=== PATIENT | female | born 1945 | race Caucasian/White ===

== ENCOUNTER → 2016-09-03 | Outpatient (CLI) | payer BC ==
[~2016-09-03] MED LIST: ACCL20 PO; ACET-1311 PO; ASCA500 PO; ATV5 PO; CLTP PO; CYAN500T13 PO; JANUMET PO; LISI-461 PO; LRT5 PO; MULT-506 PO; OMEG10007 PO; OXYM0.0592 NAE; PANT40TA PO; PARO1TAB27 PO; SIMV20TA2 PO
[2016-09-03 11:16] LABS: HEMATOCRIT 42.8 % (37-47); MEAN CELL VOLUME 92.6 fL (80-100); MEAN CORPUSCULAR HEMOGLOBIN 31.4 pg (25-34); MEAN CORPUSCULAR HGB CONC 33.9 g/dl (32-36); MEAN PLATELET VOLUME 11.1 fL (7.4-10.4); PLATELET COUNT 185 K/uL (130-400); RED BLOOD COUNT 4.62 M/uL (4.2-5.4); WHITE BLOOD COUNT 6.62 K/uL (4.8-10.8)
[2016-09-03 11:37] LABS: ESTIMATED AVERAGE GLUCOSE 163 mg/dl; HA1C FLAG Normal (Normal)
[2016-09-03 11:58] LABS: BLOOD UREA NITROGEN 15 mg/dl (7-18); BUN/CREATININE RATIO 17.5 (10-20); CARBON DIOXIDE 26 mmol/L (21-32); CHLORIDE 106 mmol/L (98-107); CREATININE 0.85 mg/dl (0.60-1.20); GLUCOSE 147 mg/dl (70-99); POTASSIUM 4.3 mmol/L (3.5-5.1); SODIUM 141 mmol/L (136-145)
[2016-09-03 11:59] LABS: ALKALINE PHOSPHATASE 88 U/L (45-117); ALT/SGPT 39 U/L (12-78); AST/SGOT 23 U/L (15-37); CALCIUM 8.8 mg/dl (8.5-10.1); CHOLESTEROL 156 mg/dl (0-200); CHOLESTEROL/HDL RATIO 3.3; HDL CHOLESTEROL 47 mg/dl; LDL CHOLESTEROL CALCULATED 69 mg/dl; TRIGLYCERIDES 202 mg/dl (0-150); VERY LOW DENSITY LIPOPROT CALC 40 mg/dl
== END | disposition home or self-care (01) ==
LOC: C.LAB 10:23
PROVIDERS: ATTEND Internal Medicine Geriatric Medicine
DX: E78.5 Hyperlipidemia, unspecified (principal); M19.90 Unspecified osteoarthritis, unspecified site; E11.9 Type 2 diabetes mellitus without complications; I10 Essential (primary) hypertension

== ENCOUNTER → 2016-10-20 | Outpatient (CLI) | payer BC | END | disposition home or self-care (01) | LOC: C.LABPBG 11:56 | PROVIDERS: ATTEND Internal Medicine Geriatric Medicine | DX: Z11.59 Encounter for screening for other viral diseases (principal) ==

== ENCOUNTER → 2016-10-31 | Outpatient (CLI) | payer BC ==
--- NOTE | 2016-10-31 13:48 | DIAGNOSTIC IMAGING REPORT ---
TWO VIEW CHEST CLINICAL HISTORY: Asthma exacerbation. FINDINGS: PA and lateral chest radiographs are compared to study dated 08/25/2010. The cardiomediastinal silhouette is unremarkable. Chronic interstitial thickening is unchanged from previous. There is no airspace consolidation or pleural effusion. No pneumothorax is seen. The skeletal structures are osteopenic. Mild degenerative change is noted in the thoracic spine. IMPRESSION: No active disease in the chest. Electronically signed by: Abner Messer M.D. 10/31/2016 1:46 PM Dictated Date/Time: 10/31/2016 1:45 PM
== END | disposition home or self-care (01) ==
LOC: C.RADBC 12:09
PROVIDERS: ATTEND Internal Medicine
DX: J45.901 Unspecified asthma with (acute) exacerbation (principal)

== ENCOUNTER → 2017-02-19 | Outpatient (CLI) | payer BC ==
[2017-02-19 17:01] LABS: BASO % 0.8 %; BASO ABS # 0.05 K/uL (0-0.2); COMPLETE YES; EOS % 8.6 %; HEMATOCRIT 41.9 % (37-47); IG% 0.3 %; LYMPH % 22.4 %; LYMPH ABS # 1.43 K/uL (1.2-3.4); MEAN CELL VOLUME 93.3 fL (80-100); MEAN CORPUSCULAR HEMOGLOBIN 31.2 pg (25-34); MEAN CORPUSCULAR HGB CONC 33.4 g/dl (32-36); MEAN PLATELET VOLUME 11.2 fL (7.4-10.4); MONO % 6.6 %; NEUT % 61.3 %; PLATELET COUNT 205 K/uL (130-400); RED BLOOD COUNT 4.49 M/uL (4.2-5.4); WHITE BLOOD COUNT 6.38 K/uL (4.8-10.8)
[2017-02-19 17:07] LABS: BLOOD UREA NITROGEN 25 mg/dl (7-18); BUN/CREATININE RATIO 28.2 (10-20); CARBON DIOXIDE 24 mmol/L (21-32); CHLORIDE 112 mmol/L (98-107); GLUCOSE 146 mg/dl (70-99); POTASSIUM 3.9 mmol/L (3.5-5.1); SODIUM 145 mmol/L (136-145)
[2017-02-20 06:07] LABS: ESTIMATED AVERAGE GLUCOSE 163 mg/dl; HA1C FLAG Normal (Normal)
== END | disposition home or self-care (01) ==
LOC: C.LABPBG 12:02
PROVIDERS: ATTEND Internal Medicine Geriatric Medicine
DX: E11.9 Type 2 diabetes mellitus without complications (principal); I10 Essential (primary) hypertension; J45.909 Unspecified asthma, uncomplicated; G89.29 Other chronic pain

== ENCOUNTER → 2017-06-03 | Outpatient (CLI) | payer BC | END | disposition home or self-care (01) | LOC: C.PATHSPEC 13:19 | PROVIDERS: ATTEND Dermatology | DX: D18.1 Lymphangioma, any site (principal); L82.1 Other seborrheic keratosis ==

== ENCOUNTER → 2017-07-26 | Outpatient (CLI) | payer BC ==
--- NOTE | 2017-07-27 15:09 | MAMMOGRAPHY REPORT ---
BILATERAL DIGITAL SCREENING MAMMOGRAM TOMOSYNTHESIS WITH CAD: 07/26/2017 CLINICAL HISTORY: Routine screening. Patient has no complaints. TECHNIQUE: Breast tomosynthesis in addition to standard 2D mammography was performed. Current study was also evaluated with a Computer Aided Detection (CAD) system. COMPARISON: Comparison is made to exams dated: 07/20/2016 mammogram, 07/17/2015 mammogram, 4 mammogram, 01/26/2014 mammogram, 08/02/2013 ultrasound, and 07/13/2013 mammogram - [facility]. BREAST COMPOSITION: There are scattered areas of fibroglandular density in both breasts. FINDINGS: There are diffuse bilateral benign-appearing rim, rounded punctate microcalcifications in the breasts. No suspicious mass, architectural distortion or cluster of new, suspicious microcalcifi cations is seen. IMPRESSION: ACR BI-RADS CATEGORY 2: BENIGN There is no mammographic evidence of malignancy. A 1 year screening mammogram is recommended. The pa tient will receive written notification of the results. Approximately 10% of breast cancers are not detected with mammography. A negative mammographic report should not delay biopsy if a clinically suggestive mass is present. Bertha Sparks M.D. ay/:07/26/2017 15:50:40 [employer] Operator: Yoli VILLANUEVAR, M, [facility] letter sent: Normal 1/2 BI-RADS Code: ACR BI-RADS Category 2: Benign
== END | disposition home or self-care (01) ==
LOC: C.MAMM 13:43
PROVIDERS: ATTEND Internal Medicine Geriatric Medicine
DX: Z12.31 Encounter for screening mammogram for malignant neoplasm of breast (principal)

== ENCOUNTER → 2017-12-03 | Outpatient (CLI) | payer BC ==
[2017-12-03 12:27] LABS: BASO % 0.2 %; BASO ABS # 0.01 K/uL (0-0.2); EOS % 6.4 %; HEMATOCRIT 41.7 % (37-47); HEMOGLOBIN 14.1 g/dL (12.0-16.0); LYMPH % 26.3 %; LYMPH ABS # 1.23 K/uL (1.2-3.4); MEAN CELL VOLUME 93.3 fL (80-100); MEAN CORPUSCULAR HEMOGLOBIN 31.5 pg (25-34); MEAN CORPUSCULAR HGB CONC 33.8 g/dl (32-36); MEAN PLATELET VOLUME 11.3 fL (7.4-10.4); MONO ABS # 0.42 K/uL (0.11-0.59); NEUT % 58.1 %; NEUT ABS # 2.71 K/uL (1.4-6.5); PLATELET COUNT 207 K/uL (130-400); RED CELL DISTRIBUTION WIDTH CV 12.6 % (11.5-14.5); RED CELL DISTRIBUTION WIDTH SD 42.7 fL (36.4-46.3); WHITE BLOOD COUNT 4.67 K/uL (4.8-10.8)
[2017-12-03 13:11] LABS: HEMOGLOBIN A1C 6.8 % (4.5-5.6)
[2017-12-03 16:12] LABS: ALBUMIN 3.6 gm/dl (3.4-5.0); ALT/SGPT 31 U/L (12-78); BLOOD UREA NITROGEN 23 mg/dl (7-18); CALCIUM 8.7 mg/dl (8.5-10.1); CARBON DIOXIDE 27 mmol/L (21-32); CHOLESTEROL 143 mg/dl (0-200); CREATININE 0.84 mg/dl (0.60-1.20); GLUCOSE 142 mg/dl (70-99); POTASSIUM 4.5 mmol/L (3.5-5.1); SODIUM 140 mmol/L (136-145)
[2017-12-03 16:23] LABS: ALKALINE PHOSPHATASE 81 U/L (45-117); AST/SGOT 21 U/L (15-37); LDL CHOLESTEROL CALCULATED 63 mg/dl
== END | disposition home or self-care (01) ==
LOC: C.LABPBG 10:34
PROVIDERS: ATTEND Internal Medicine Geriatric Medicine
DX: F32.9 Major depressive disorder, single episode, unspecified (principal); E78.5 Hyperlipidemia, unspecified; M19.90 Unspecified osteoarthritis, unspecified site; G25.81 Restless legs syndrome; E11.9 Type 2 diabetes mellitus without complications; I10 Essential (primary) hypertension

== ENCOUNTER 2019-07-11 09:34 | Inpatient (IN) ==
--- NOTE | 2019-06-15 16:45 | PAT Medication Instructions ---
Medication Instructions Date of Service June 15, 2019 Home Medications Medication Instructions Recorded paroxetine 20 mg tablet 20 mg PO HS #90 tab 02/22/19 glimepiride 2 mg tablet 2 mg PO BID #180 tab 02/25/19 zafirlukast 20 mg tablet 20 mg PO Q12H #180 tab 03/21/19 albuterol sulfate HFA 90 2 puffs INH Q4H PRN #18 gm 05/03/19 mcg/actuation aerosol inhaler albuterol sulfate 2.5 mg/3 mL 2.5 mg INH Q4H PRN #90 ml 05/10/19 (0.083 %) solution for nebulization nebulizer accessories kit #1 ea 05/10/19 nebulizers #1 ea 05/10/19 simvastatin 20 mg tablet 20 mg PO QPM #90 tab 06/13/19 ascorbic acid (vitamin C) 500 mg tablet 500 mg PO QAM fish, borage, flaxseed oils-omega 3,6,9 comb no.1 1,200 mg capsule 1 cap PO QAM lisinopril 10 mg tablet 10 mg PO QAM multivitamin tablet 1 tab PO QAM pantoprazole 40 mg tablet,delayed release 40 mg PO QAM acetaminophen 500 mg tablet 500 mg PO Q6H PRN calcium carbonate 600 mg (1,500 mg)-vitamin D3 200 unit tablet 1 tab PO QAM celecoxib 200 mg capsule 200 mg PO QAM cetirizine 10 mg tablet 10 mg PO DAILY PRN fluocinonide 0.05 % topical ointment 1 appln TOPICAL BID lorazepam 0.5 mg tablet 0.5 mg PO HS PRN sitagliptin 100 mg tablet 100 mg PO QAM paroxetine 20 mg tablet 20 mg PO HS glimepiride 2 mg tablet 2 mg PO BID zafirlukast 20 mg tablet 20 mg PO Q12H albuterol sulfate HFA 90 mcg/actuation aerosol inhaler 2 puffs INH Q4H PRN albuterol sulfate 2.5 mg/3 mL (0.083 %) solution for nebulization 2.5 mg INH Q4H PRN simvastatin 20 mg tablet 20 mg PO QPM levalbuterol HCl 1.25 mg INH DAILY PRN ASK your surgeon for instructions celecoxib 200 mg capsule 200 mg PO QAM STOP taking 2 weeks before surgery (or as soon as possible if surgery is within 2 weeks) fish, borage, flaxseed oils-omega 3,6,9 comb no.1 1,200 mg capsule 1 cap PO QAM STOP taking 24 hours before surgery fluocinonide 0.05 % topical ointment 1 appln TOPICAL BID DO NOT take the morning of surgery ascorbic acid (vitamin C) 500 mg tablet 500 mg PO QAM lisinopril 10 mg tablet 10 mg PO QAM multivitamin tablet 1 tab PO QAM calcium carbonate 600 mg (1,500 mg)-vitamin D3 200 unit tablet 1 tab PO QAM cetirizine 10 mg tablet 10 mg PO DAILY PRN sitagliptin 100 mg tablet 100 mg PO QAM glimepiride 2 mg tablet 2 mg PO BID Take morning of surgery With a small sip of water, OTHERWISE NOTHING TO EAT OR DRINK AFTER MIDNIGHT: pantoprazole 40 mg tablet,delayed release 40 mg PO QAM acetaminophen 500 mg tablet 500 mg PO Q6H PRN (okay to take up to 4 hours prior to surgery if needed) zafirlukast 20 mg tablet 20 mg PO Q12H albuterol sulfate HFA 90 mcg/actuation aerosol inhaler 2 puffs INH Q4H PRN (if needed) albuterol sulfate 2.5 mg/3 mL (0.083 %) solution for nebulization 2.5 mg INH Q4H PRN (if needed) levalbuterol HCl 1.25 mg INH DAILY PRN (if needed) Take evening before surgery acetaminophen 500 mg tablet 500 mg PO Q6H PRN (if needed) cetirizine 10 mg tablet 10 mg PO DAILY PRN (if needed) lorazepam 0.5 mg tablet 0.5 mg PO HS PRN (if needed) paroxetine 20 mg tablet 20 mg PO HS glimepiride 2 mg tablet 2 mg PO BID zafirlukast 20 mg tablet 20 mg PO Q12H albuterol sulfate HFA 90 mcg/actuation aerosol inhaler 2 puffs INH Q4H PRN (if needed) albuterol sulfate 2.5 mg/3 mL (0.083 %) solution for nebulization 2.5 mg INH Q4H PRN (if needed) simvastatin 20 mg tablet 20 mg PO QPM levalbuterol HCl 1.25 mg INH DAILY PRN (if needed) Other Notes If you have any questions please call us at [phone] or [phone] or [phone] or [phone]
--- NOTE | 2019-07-10 09:29 | Anesthesiology Consultation ---
Date of Service July 10, 2019 Assessment & Plan Chart Review Chart Review: Acceptable Risk for Surgery and Patient seen in Pre Admission Testing Consults Requested none ASA ASA4 Proposed Anesthesia Anesthesia Type: General Anesthesia Line Insertion: Arterial line History Surgery Operation Date: 07/11/19 11:30 Proposed Procedures p Left Robotic Video Assisted Thoracoscopy with Excision of Paraspinal Mass - Quinn Clark MD, FACS Height/Weight Height: 5 ft 2 in Weight: 85.275 kg Allergies Allergy/AdvReac Type Severity Reaction Status Date / Time latex Allergy Mild itching Verified 07/04/19 12:47 metformin Allergy Mild GI upset Verified 07/04/19 12:47 NSAIDS (Non-Steroidal Allergy Mild bleeding Verified 07/04/19 12:47 Anti-Inflamma Medications Home Medications Medication Instructions Recorded Confirmed Last Taken ascorbic acid (vitamin C) 500 mg 500 mg PO QAM 01/02/19 07/04/19 Unknown tablet fish, borage, flaxseed oils-omega 1 cap PO QAM cap 01/02/19 07/04/19 Unknown 3,6,9 comb no.1 1,200 mg capsule lisinopril 10 mg tablet 10 mg PO QAM 01/02/19 07/04/19 Unknown multivitamin tablet 1 tab PO QAM 01/02/19 07/04/19 Unknown pantoprazole 40 mg tablet,delayed 40 mg PO QAM 01/02/19 07/04/19 Unknown release blood sugar diagnostic strips #10 ea 02/21/19 07/04/19 Unknown calcium carbonate 600 mg (1,500 1 tab PO QAM 02/21/19 07/04/19 Unknown mg)-vitamin D3 200 unit tablet celecoxib 200 mg capsule 200 mg PO QAM #90 cap 02/21/19 07/04/19 Unknown cetirizine 10 mg tablet 10 mg PO DAILY PRN tab 02/21/19 07/04/19 Unknown fluocinonide 0.05 % topical 1 appln TOPICAL BID #1 gm 02/21/19 07/04/19 Unknown ointment lancets 33 gauge #100 ea 02/21/19 07/04/19 Unknown sitagliptin 100 mg tablet 100 mg PO QAM #90 tab 02/21/19 07/04/19 Unknown paroxetine 20 mg tablet 20 mg PO HS #90 tab 02/22/19 07/04/19 Unknown glimepiride 2 mg tablet 2 mg PO BID #180 tab 02/25/19 07/04/19 Unknown zafirlukast 20 mg tablet 20 mg PO Q12H #180 tab 03/21/19 07/04/19 Unknown albuterol sulfate HFA 90 2 puffs INH Q4H PRN #18 gm 05/03/19 07/04/19 Unknown mcg/actuation aerosol inhaler albuterol sulfate 2.5 mg/3 mL 2.5 mg INH Q4H PRN #90 ml 05/10/19 07/04/19 Unknown (0.083 %) solution for nebulization nebulizer accessories kit #1 ea 05/10/19 07/04/19 Unknown nebulizers #1 ea 05/10/19 07/04/19 Unknown simvastatin 20 mg tablet 20 mg PO QPM #90 tab 06/13/19 07/04/19 Unknown levalbuterol HCl 1.25 mg INH DAILY PRN 06/14/19 07/04/19 Unknown metformin ER 500 mg 500 mg PO QPM #30 tab 06/20/19 07/04/19 Unknown tablet,extended release 24 hr lorazepam 0.5 mg tablet 0.5 mg PO HS PRN #90 tab 07/04/19 07/04/19 Unknown Past Medical History Medical History Restless legs syndrome (Chronic) Osteoarthritis Gastroesophageal reflux disease Chronic pain HTN (hypertension) Asthma Dyslipidemia (Chronic) Osteopenia (Chronic) Sleep apnea cpap doesn't use machine Depression Type 2 diabetes mellitus (Chronic) History of bronchitis Exercise / Class Metabolic Activity III < 4 Walking/Shop/Light housework Past Family History Family History Unknown Type 2 diabetes mellitus Coronary heart disease Hypertension Depression Past Surgical History Surgical History H/O: hysterectomy History of carpal tunnel surgery right and left History of knee replacement bilateral History of uvulopalatopharyngoplasty Hx of Achilles tendon repair left Hx of appendectomy S/P tonsillectomy 2002 Past Anesthesia History No Hx of Anesthesia Complications and No Family Hx of Anesthesia Complications History of PONV No Hx of PONV and No Hx of Motion Sickness Social History Smoking Status: Never smoker Do You Dip or Chew Tobacco: No Hx Alcohol Use: No Hx Substance Use: No substance use type: does not use Testing Laboratory Results WBC: 5.48 Hc.6 Hct: 43.8 PLATELETS: 187 SODIUM:140 POTASSIUM: 3.9 CHLORIDE: 110 CO2: 24 BUN: 24 CREATININE: 0.98 GLUCOSE: 269 PT: PTT: INR: UA: TYPE AND SCREEN: HgB A1C-10.2 Electrocardiogram Date: 07/07/19 Findings: + NSR @ (at 78) Chest X-Ray Date: 05/10/19 Findings: + NAD
[~2019-07-11 09:34] MED LIST changes: -ACCL20 PO; -ACET-1311 PO; -ASCA500 PO; -ATV5 PO; -CLTP PO; -CYAN500T13 PO; -JANUMET PO; -LISI-461 PO; -LRT5 PO; -MULT-506 PO; -OMEG10007 PO; -OXYM0.0592 NAE; -PANT40TA PO; -PARO1TAB27 PO; -SIMV20TA2 PO; +SODIUM CHLORIDE 0.9% 1000ML IV SCH
[2019-07-11] MEDS ORDERED: MIDAZOLAM HCL 1 MG/ML 2ML VIAL ONE (10:51)
[2019-07-11] MEDS ORDERED: fentaNYL citrate 100 MCG/2 ML VIAL ONE ×2 (10:52→14:40)
[2019-07-11] MEDS ORDERED: ONDANSETRON INJ 2 MG/ML 2 ML VIAL IV PRN ×2 (11:08→16:09)
[2019-07-11] MEDS ORDERED: LABETALOL HCL IV 5 MG/ML 20ML IV PRN (11:08)
[2019-07-11] MEDS ORDERED: ATROPINE SULFATE 0.1 MG/ML 10ML SYR IV PRN (11:08)
[2019-07-11] MEDS ORDERED: HYDROmorphone INJ 1 MG/ML SYRINGE IV PRN (11:08)
[2019-07-11] MEDS ORDERED: PROMETHAZINE HCL 6.25 MG in SODIUM CHLORIDE 0.9% 50 ML IV PRN (11:08)
[2019-07-11] MEDS ORDERED: BUPIVACAINE 0.5 % 5 MG/1 ML MPF 30ML VIAL ONE (11:33)
[2019-07-11] MEDS ORDERED: SODIUM CHLORIDE 0.9% PF 50 ML VIAL ONE (11:33)
[2019-07-11] MEDS ORDERED: BUPIVACAINE LIPOSOME 1.3% 266 MG/20 ML VIAL ONE (11:34)
[2019-07-11] MEDS ORDERED: CEFAZOLIN 2,000 MG/15 ML IV PUSH IV ONE (12:06)
--- NOTE | 2019-07-11 12:10 | History & Physical Report ---
Date of Service July 11, 2019 Assessment & Plan (1) Paraspinal mass: We are going to proceed with a left thoracoscopy with a robot-assisted resection of this paraspinous mass. We had a long discussion about risks and benefits. Patient and her family understand. Present on Admission?: Yes History of Present Illness Jeanne Sparrow is a very nice 74-year-old female who presented to her primary care physician with a cough. 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 We performed a MRI which confirmed this. Patient has multiple other medical issues including poorly controlled diabetes, hyperlipidemia, gastroesophageal reflux disease. Her sugars were not well controlled and Lakshmi Vu, her primary care provider, asked that we hold off on the surgery until the sugars could be better control. This is been done and we are going to proceed with the surgery today. I had a long talk the patient several of her family members. She has no symptoms from this mass. They are going to offer her a left thoracoscopic robot-assisted excision of this paraspinal mass. Primary Care Provider: Lakshmi Vu PA-C Allergies Allergy/AdvReac Type Severity Reaction Status Date / Time latex Allergy Mild itching Verified 07/11/19 09:56 metformin Allergy Mild GI upset Verified 07/11/19 09:56 NSAIDS (Non-Steroidal Allergy Mild bleeding Verified 07/11/19 09:56 Anti-Inflamma Home Medications Home Medications Medication Instructions Recorded Confirmed Type ascorbic acid (vitamin C) 500 mg 500 mg PO QAM 01/02/19 07/11/19 History tablet fish,bora,flax oils-om3,6,9no1 1 cap PO QAM cap 01/02/19 07/11/19 History 1,200 mg capsule lisinopril 10 mg tablet 10 mg PO QAM 01/02/19 07/11/19 History multivitamin 1 tab PO QAM 01/02/19 07/11/19 History pantoprazole 40 mg tablet,delayed 40 mg PO QAM 01/02/19 07/11/19 History release blood sugar diagnostic #10 ea 02/21/19 07/04/19 History calcium carbonate 600 mg (1,500 1 tab PO QAM 02/21/19 07/11/19 History mg)-vitamin D3 200 unit tablet celecoxib 200 mg capsule 200 mg PO QAM #90 cap 02/21/19 07/11/19 History cetirizine 10 mg tablet 10 mg PO DAILY PRN tab 02/21/19 07/11/19 History fluocinonide 0.05 % topical 1 appln TOPICAL BID #1 gm 02/21/19 07/11/19 History ointment lancets 33 gauge #100 ea 02/21/19 07/04/19 History sitagliptin 100 mg tablet 100 mg PO QAM #90 tab 02/21/19 07/11/19 History paroxetine HCl 20 mg tablet 20 mg PO HS #90 tab 02/22/19 07/11/19 Rx glimepiride 2 mg tablet 2 mg PO BID #180 tab 02/25/19 07/11/19 Rx zafirlukast 20 mg tablet 20 mg PO Q12H #180 tab 03/21/19 07/11/19 Rx albuterol sulfate 90 mcg/actuation 2 puffs INH Q4H PRN #18 gm 05/03/19 07/11/19 Rx aerosol inhaler albuterol sulfate 2.5 mg/3 mL 2.5 mg INH Q4H PRN #90 ml 05/10/19 07/11/19 Rx (0.083 %) solution for nebulization nebulizer accessories #1 ea 05/10/19 07/04/19 Rx nebulizers #1 ea 05/10/19 07/04/19 Rx simvastatin 20 mg tablet 20 mg PO QPM #90 tab 06/13/19 07/11/19 Rx levalbuterol HCl 1.25 mg INH DAILY PRN 06/14/19 07/11/19 History metformin 500 mg tablet,extended 500 mg PO QPM #30 tab 06/20/19 07/11/19 Rx release 24 hr lorazepam 0.5 mg tablet 0.5 mg PO HS PRN #90 tab 07/04/19 07/11/19 Rx Past Med/Surg History Family History Unknown Type 2 diabetes mellitus Coronary heart disease Hypertension Depression Social History Preferred Language: Irish Communication Ability: Effective Visual Impairment: No Limitations Hearing Ability: Normal Shingles Roofer Required: No Beliefs That Will Affect Care: None marital status: Single Current Living Situation: Family Current Living Situation Comment: LIVES WITH NIECE current occupational status: employed 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 Other Information That Helps Us Care for You: No Feels Safe at Home: Yes Safety Concerns: Feels Safe At This Time Smoking Status: Never smoker Do You Dip or Chew Tobacco: No ; Second Hand Exposure: No ; Tobacco Cessation Education Requested by Patient: No Hx Alcohol Use: No Hx Substance Use: No Childhood Exposure to Second-Hand Smoke: No Dental Care, Regularly: No Physical Activity Frequency: Daily Seatbelt Use: always Sunscreen Use: Yes Review of Systems 2 Review of Systems: All systems reviewed & are unremarkable except as noted in HPI & below Physical Exam Physical Exam: Patient well-developed well-nourished with no acute distress. Pupils are equally round. Her sclera are anicteric. Her tongue is midline. She is edentulous. Her neck is supple. She has no supra clavicular cervical lymphadenopathy or carotid bruits. Her lungs are clear. She has a regular rate and rhythm of her heart upon auscultation. Her abdomen is obese but soft nontender. Peripherally her feet are warm and dry. She has no neurologic symptoms. Results & Data Vital Signs (Past 12 Hours) Vital Signs Temp Pulse Resp BP Pulse Ox 07/11/19 10:04 36.8 C 86 18 145/84 H 92 PG Care Time/CCT Total # of Minutes Spent Total Time Spent with Patient: Total time spent is greater than 50% in coordination of care (as documented) at patient's floor/unit and/or counseling patient:
[2019-07-11] MEDS ORDERED: SURGICEL ABSORB HEMOSTAT 2IN X 14IN TOP ONE (14:00)
--- NOTE | 2019-07-11 14:21 | Post Operative Brief Note ---
PG Immediate Post Op with CF Date of Surgery July 11, 2019 Pre & Post Diagnosis Operation Date: 07/11/19 11:30 Pre-Op Diagnosis: Paraspinal Mass Post-Op Diagnosis: Paraspinal Mass I identified the patient and participated in the time-out.: Yes Procedure Operation Date: 07/11/19 11:30 Actual Procedures p Left Robotic Video Assisted Thoracoscopy with Excision of Paraspinal Mass(Left) - Quinn Clark MD, FACS Surgeon Quinn Clark MD, FACS Crusher Tender Renata LIAO Estimated Blood Loss 400 Findings Consistent with Post-Op Diagnosis Specimens Specimen Description: Frozen #1 Paraspinous Mass out at 1345 Permanent Specimen: A: Paraspinous Mass Drains Gibbons Catheter
[2019-07-11] MEDS ORDERED: GLYCOPYRROLATE 0.2 MG/ML VIAL ONE (14:22)
[2019-07-11] MEDS ORDERED: ePHEDrine sulfate 50 MG/ML SYR ONE (14:22)
[2019-07-11] MEDS ORDERED: NEOSTIGMINE METHYLSULFATE 5 MG/5 ML SYR ONE (14:22)
[2019-07-11] MEDS ORDERED: LIDOCAINE HCL 2% 2 ML VIAL/AMP(20MG/ML) INFIL ONE (14:22)
[2019-07-11] MEDS ORDERED: ROCURONIUM BROMIDE 10 MG/ML 5 ML VIAL ONE (14:22)
[2019-07-11] MEDS ORDERED: PROPOFOL IV EMULSION 10 MG/ML 20 ML VIAL IV ONE (14:22)
[2019-07-11] MEDS ORDERED: PHENYLEPHRINE 100MCG/ML 5ML SYR ONE (14:22)
[2019-07-11] MEDS ORDERED: ONDANSETRON INJ 2 MG/ML 2 ML VIAL ONE (14:22)
[2019-07-11] MEDS ORDERED: METOCLOPRAMIDE HCL INJ 5 MG/ML 2 ML VIAL IV ONE ×2 (14:45→17:30)
--- NOTE | 2019-07-11 15:01 | XRay Report ---
XR chest 1V portable HISTORY: 74 years-old Female excision of mediastinal mass status post excision of a mediastinal lesi on COMPARISON: Chest CT 05/18/2019 TECHNIQUE: Portable AP view of the chest FINDINGS: Cardiac silhouette is enlarged. Interstitial coarsening with pulmonary vascular congestion. Prominenc e of the mediastinum is noted with suggested trace pneumomediastinum. Chest tube distal tip projects adjacent to left lung apex. No pneumothorax identified. No large pleural effusion. Mild subcutaneous emphysema about the lateral left chest wall. Degenerative changes of the shoulders and spine. IMPRESSION: 1. Cardiomegaly with pulmonary edema. 2. Trace pneumomediastinum is suggested without pneumothorax identified. 3. Left-sided chest tube, distal tip terminating adjacent to left lung apex. The above report was generated using voice recognition software. It may contain grammatical, syntax o r spelling errors. Electronically signed by: Marc Oropeza M.D. 07/11/2019 2:59 PM
--- NOTE | 2019-07-11 15:48 | Anesthesiology Progress Note ---
Date of Service July 11, 2019 Anesthesia Post Procedure Vital Signs Vital Signs: Temp Pulse Pulse Resp BP Pulse Ox 07/11/19 15:40 36.2 C L 85 24 126/76 93 07/11/19 15:30 36.2 C L 86 30 H 115/67 93 07/11/19 15:20 36.2 C L 86 30 H 115/67 93 07/11/19 15:10 36.2 C L 84 37 H 117/70 92 07/11/19 15:00 36.2 C L 87 31 H 132/75 92 07/11/19 14:53 36.2 C L 84 22 147/79 H 90 07/11/19 10:04 36.8 C 86 18 145/84 H 92 Transfer of Care Handoff Completed per policy Notes Mental Status: alert / awake / arousable and participated in evaluation Patient Amnestic to Procedure: Yes Nausea / Vomiting: adequately controlled Pain: adequately controlled Airway Patency, RR, SpO2: stable & adequate BP & HR: stable & adequate Hydration State: stable & adequate Anesthetic Complications: no major complications apparent and Pt Satisfied with anesthetic care
--- NOTE | 2019-07-11 16:02 | Operative Report ---
PG Post Operative Report Pre & Post Diagnosis Operation Date: 07/11/19 11:30 Pre-Op Diagnosis: Paraspinal Mass Post-Op Diagnosis: Paraspinal Mass I identified the patient and participated in the time-out.: Yes Procedure Operation Date: 07/11/19 11:30 Actual Procedures p Left Robotic Video Assisted Thoracoscopy with Excision of Paraspinal Mass(Left) - Quinn Clark MD, FACS Surgeon Quinn Clark MD, FACS Bun Panner Renata LIAO Estimated Blood Loss 400 Findings Consistent with Post-Op Diagnosis Specimens paraspinal mass Drains 24 fr chest tube Anesthesia Type General Complications none Disposition Accompanied Patient To Recovery: No Indications Presence of paraspinal mass Description of Procedure I attest to the content of the Intraoperative Record and any orders documented therein. Any exceptions are noted below.
[2019-07-11] MEDS ORDERED: CETIRIZINE HCL 10 MG TABLET PO PRN (16:09)
[2019-07-11] MEDS ORDERED: LEVALBUTEROL HCL 1.25 MG/3 ML NEB INH PRN (16:09)
[2019-07-11] MEDS ORDERED: LORazepam 0.5 MG TAB PO PRN (16:09)
[2019-07-11] MEDS ORDERED: ALBUTEROL HFA 8 GM INHALER INH PRN (16:09)
[2019-07-11] MEDS ORDERED: ALBUTEROL 0.083% NEBU SOLN 3 ML VIAL INH PRN (16:09)
--- NOTE | 2019-07-11 16:09 | Operative Report ---
PG Post Operative Report Pre & Post Diagnosis Operation Date: 07/11/19 11:30 Pre-Op Diagnosis: Paraspinal Mass Post-Op Diagnosis: Paraspinal Mass I identified the patient and participated in the time-out.: Yes Procedure Operation Date: 07/11/19 11:30 Actual Procedures p Left Robotic Video Assisted Thoracoscopy with Excision of Paraspinal Mass(Left) - Quinn Clark MD, FACS Surgeon Quinn Clark MD, FACS Wind Development Director Renata LIAO Estimated Blood Loss 400 Findings Consistent with Post-Op Diagnosis Specimens Paraspinal mass Description of Procedure Patient was brought to the operating room laid in supine position. General anesthesia induced ventricular basement for the double-lumen tube. Gibbons catheter was placed in proper monitoring lines. Patient was left in supine position but her left arm was lowered in a small roll was placed on her left hemithorax in order to elevate her. We then prepped and draped in usual sterile fashion. After appropriate a box had been given prophylactically and appropriate timeout called and incision was made medially just under the breast. Upon placing the 5 mm port we can see we are in the pleural cavity and carbon dioxide was insufflated. Upon placing the 5 mm 30 degree scope we could easily see this mass which was right next to the intrathoracic proximal subclavian artery. An 8 mm port was then switched over for this port and another 8 mm port was placed laterally superiorly anterior to the axilla. This was done under direct vision thoracoscopically. Then placed another port between these 2 ports under the breast that midway between the 2 ports which was a lateral portion of the breast. A 12 mm camera port was placed here. We then placed a assistance port just above the diaphragm between these 2 ports a bit more inferior. The robot was docked. Upon entering we had good visualization of the mass. It was a purplish hue. Using the bipolar [place] forceps I then scored the pleura around this. I then started peeling off the rib and going down into the interspace and it began to bleed. This did not look like a neurogenic tumor to me. It bled quite a bit. I finally removed it in toto and sent it off for frozen section. There was a good deal of fibrous tissue around it. I did place a single clip to control 1 of the feeding vessels. We also use the aqua Mantis which was brought into the assistance port and used to cauterize this. Also placed a piece of Surgicel on this and held pressure. The bleeding was well controlled. We did lose about 400 cc of blood. This is a constant ooze before we could finally get control. We closely inspected rest the pleural cavity before starting this procedure and did not see any abnormalities. Lorraine Ramirez, 206 6 mg in 20 cc of solution mixed with 30 cc of 0.5% bupivacaine and 200 cc normal saline were used to inject each of the port sites and also did an intrathoracic block in the intercostal spaces from the second to the 11th rib. We then undocked the robot after removing the mass. We sent this for frozen section did come back as a probable benign neoplasm. It did appear vascular. I am a 26 [place] chest tube was placed to 1 of the port and directed towards the apex and held in place heavy silk suture. 4 Monocryl was used to close each of the thoracoscopy incisions. She tolerated very well was extubated in the room. I attest to the content of the Intraoperative Record and any orders documented therein. Any exceptions are noted below.
[2019-07-11] MEDS ORDERED: CARBOHYDRATES FOR HYPOGLYCEMIA PO PRN (16:30)
[2019-07-11] MEDS ORDERED: GLUCOSE 10 TABS/TUBE PO PRN (16:30)
[2019-07-11] MEDS ORDERED: GLUCAGON FOR INJ 1 MG VIAL IM PRN (16:30)
[2019-07-11] MEDS ORDERED: GLUCOSE 40% GEL 15 GM TUBE PO PRN (16:30)
[2019-07-11] MEDS ORDERED: DEXTROSE 50% 50 ML SYRINGE IV PRN (16:30)
[2019-07-11] MEDS: OXYCODONE HCL IR 5 MG TAB (IMMEDIATE RELEASE) PO PRN (16:37)
[2019-07-11] MEDS: SODIUM CHLORIDE 0.9% 1000ML 1,000 ML IV SCH (16:57)
[2019-07-11] MEDS: ACETAMINOPHEN 1,000 MG/100 ML VIAL IV SCH ×2 (17:29→23:43)
[2019-07-11] MEDS: GLIMEPIRIDE 2 MG TAB PO SCH (17:35)
[2019-07-11] MEDS: INSULIN ASPART 100 UNITS/ML 3 ML PEN SC SCH ×2 (18:46→21:02)
[2019-07-11] MEDS: SIMVASTATIN 20 MG TAB PO SCH (21:02)
[2019-07-11] MEDS: DOCUSATE SODIUM 100 MG CAP PO SCH (21:02)
[2019-07-11] MEDS: FLUOCINONIDE 0.05% OINT 15 GM TUBE EXT SCH (21:02)
[2019-07-11] MEDS: PARoxetine HCl 20 MG TAB PO SCH (21:02)
[2019-07-11] MEDS: MoRPHine SULFATE 2 MG/ML CARP IV PRN (23:42)
[2019-07-12] MEDS: MoRPHine SULFATE 2 MG/ML CARP IV PRN (02:30)
[2019-07-12] MEDS: METOCLOPRAMIDE HCL INJ 5 MG/ML 2 ML VIAL IV SCH ×2 (02:30→10:47)
[2019-07-12] MEDS: SODIUM CHLORIDE 0.9% 1000ML 1,000 ML IV SCH (05:24)
[2019-07-12] MEDS: OXYCODONE HCL IR 5 MG TAB (IMMEDIATE RELEASE) PO PRN ×2 (05:45→23:13)
--- NOTE | 2019-07-12 07:12 | XRay Report ---
XR chest 1V portable CLINICAL HISTORY: Postop mediastinal mass excision COMPARISON STUDY: July 11, 2019 FINDINGS: The heart remains enlarged. There is diffuse interstitial thickening. There is a left-sided chest tube. There is a trace left apical pneumothorax. There are left lower lobe airspace opacities, atelectatic versus infectious.[ IMPRESSION: 1. Persistent cardiomegaly and interstitial thickening/edema 2. Trace pneumothorax. No change in the position of the left-sided chest tube 3. Left lower lobe airspace opacities Electronically signed by: Konstantin Love M.D. 07/12/2019 7:11 AM
--- NOTE | 2019-07-12 08:13 | XRay Report ---
XR chest 1V portable CLINICAL HISTORY: Chest tube removal COMPARISON STUDY: 07/12/2019 FINDINGS: The heart remains enlarged. There is persistent interstitial thickening. There has been int erval removal of the left-sided chest tube. There is a trace left apical pneumothorax, similar in siz e to prior study. There are persistent left basilar airspace opacities.[ IMPRESSION: 1. Interval removal of the left-sided chest tube 2. Persistent trace left apical pneumothorax, unchanged in size 3. Persistent bilateral interstitial thickening and left basilar airspace opacities Electronically signed by: Konstantin Love M.D. 07/12/2019 8:12 AM
[2019-07-12] MEDS: CALCIUM 600MG + VIT D 400 IU TAB PO SCH (08:51)
[2019-07-12] MEDS: GLIMEPIRIDE 2 MG TAB PO SCH ×2 (08:51→18:19)
[2019-07-12] MEDS: DOCUSATE SODIUM 100 MG CAP PO SCH ×2 (08:51→20:36)
[2019-07-12] MEDS: SITAGLIPTIN PHOSPHATE 100 MG TAB PO SCH (08:52)
[2019-07-12] MEDS: FLUOCINONIDE 0.05% OINT 15 GM TUBE EXT SCH ×2 (08:52→20:36)
[2019-07-12] MEDS: ENOXAPARIN INJ 40 MG/0.4 ML SYR SQ SCH (08:53)
[2019-07-12] MEDS: INSULIN ASPART 100 UNITS/ML 3 ML PEN SC SCH ×4 (08:56→20:43)
[2019-07-12] MEDS ORDERED: LISINOPRIL 10 MG TAB PO SCH ×2 (09:00→21:00)
[2019-07-12] MEDS: ACETAMINOPHEN 1,000 MG/100 ML VIAL IV SCH (09:00)
[2019-07-12] MEDS ORDERED: PANTOprazole 40 MG TAB PO SCH ×2 (09:00→21:00)
[2019-07-12] MEDS ORDERED: METOCLOPRAMIDE HCL INJ 5 MG/ML 2 ML VIAL ONE (10:45)
[2019-07-12] MEDS ORDERED: Nursing to Pharmacy Communication ONE (10:50)
--- NOTE | 2019-07-12 13:08 | Anesthesiology Progress Note ---
Date of Service July 12, 2019 Anesthesia Post Procedure Vital Signs Vital Signs: Temp Pulse Pulse Resp BP BP Pulse Ox 07/12/19 12:22 36.9 C 80 21 110/70 90 07/12/19 07:55 37.1 C 72 14 110/70 90 07/12/19 05:46 95 07/12/19 04:15 36.9 C 79 16 106/66 94 07/12/19 02:15 36.8 C 80 18 109/69 95 07/12/19 00:15 36.9 C 84 18 103/66 95 07/11/19 22:16 36.9 C 89 17 114/71 95 07/11/19 20:13 36.8 C 95 H 17 108/67 96 07/11/19 19:08 36.8 C 89 17 109/67 99 07/11/19 18:35 93 H 18 108/66 97 07/11/19 17:48 71 16 115/69 95 07/11/19 16:15 36.4 C L 84 18 114/69 92 07/11/19 16:00 36.2 C L 82 26 H 132/78 94 07/11/19 15:50 36.2 C L 85 22 122/72 94 07/11/19 15:40 36.2 C L 85 24 126/76 93 07/11/19 15:30 36.2 C L 86 30 H 115/67 93 07/11/19 15:20 36.2 C L 86 30 H 115/67 93 07/11/19 15:10 36.2 C L 84 37 H 117/70 92 07/11/19 15:00 36.2 C L 87 31 H 132/75 92 07/11/19 14:53 36.2 C L 84 22 147/79 H 90 Pain Intensity Left Chest: Pain Intensity: 2 Notes Mental Status: alert / awake / arousable Patient Amnestic to Procedure: Yes Nausea / Vomiting: adequately controlled Pain: adequately controlled Airway Patency, RR, SpO2: stable & adequate BP & HR: stable & adequate Hydration State: stable & adequate Anesthetic Complications: no major complications apparent
--- NOTE | 2019-07-12 15:00 | Surgery Progress Note ---
Date of Service July 12, 2019 Assessment & Plan (1) H/O excision of mass: We will keep the patient 1 more day and work on her pulmonary toilet and have her ambulate more. Her x-ray looks good in the morning we will allow her to be discharged. Present on Admission?: Yes (2) Paraspinal mass: Subjective Patient is complaining of some left-sided chest pain however we removed her chest tube and her pain was much improved. She is having some difficulty with oxygenation. Her x-ray shows some hypoventilation but no evidence of effusions or pneumothorax of any significance. At this point I would feel more comfortable if we watched her another night. Otherwise she is eating and drinking and walking. Pathology is still pending of this mass. We note the mass was very small but surrounded by marked fibrous tissue. Physical Exam Physical Exam: Patient's dressings are dry. Her breath sounds are bit decreased bilaterally with a few rhonchi on the left but quite frankly she sounds pretty good. His right great rhythm of her heart. Neurologically she is quite stable. Results & Data Vital Signs (Past 12 Hours) Vital Signs Temp Pulse Pulse Resp BP BP Pulse Ox 07/12/19 13:00 86 L 07/12/19 12:22 36.9 C 80 21 110/70 90 07/12/19 07:55 37.1 C 72 14 110/70 90 07/12/19 05:46 95 07/12/19 04:15 36.9 C 79 16 106/66 94 PG Care Time/CCT Total # of Minutes Spent Total Time Spent with Patient: Total time spent is greater than 50% in coordination of care (as documented) at patient's floor/unit and/or counseling patient:
[2019-07-12] MEDS: PARoxetine HCl 20 MG TAB PO SCH (20:36)
[2019-07-12] MEDS: SIMVASTATIN 20 MG TAB PO SCH (20:36)
[2019-07-13] MEDS: SITAGLIPTIN PHOSPHATE 100 MG TAB PO SCH (07:40)
[2019-07-13] MEDS: CALCIUM 600MG + VIT D 400 IU TAB PO SCH (07:40)
[2019-07-13] MEDS: DOCUSATE SODIUM 100 MG CAP PO SCH (07:40)
[2019-07-13] MEDS: GLIMEPIRIDE 2 MG TAB PO SCH (07:40)
[2019-07-13] MEDS: ENOXAPARIN INJ 40 MG/0.4 ML SYR SQ SCH (07:41)
[2019-07-13] MEDS: FLUOCINONIDE 0.05% OINT 15 GM TUBE EXT SCH (07:41)
--- NOTE | 2019-07-13 08:38 | Discharge Summary ---
Date of Service July 13, 2019 Discharge Data Procedures Performed Operation Date: 07/11/19 11:30 Actual Procedures p Left Robotic Video Assisted Thoracoscopy with Excision of Paraspinal Mass(Left) - Quinn Clark MD, [facility] Hospital Course (1) H/O excision of mass: Date of admission: 07/11/2019 Date of discharge: 07/13/2019 This 74-year-old female was found to have an asymptomatic mass in her paravertebral area on the left. After working her up with an MRI and CT scan were elected to proceed with a robotic incision. On 07/11/2019 the patient underwent uncomplicated resection of this mass. 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 It was quite vascular but we get the bleeding controlled. Tolerated well and was extubated in the operating room. She was watched on the third floor in the surgical unit and did quite well. She is ambulating the hallway. Her only problem was really did not get her oxygen levels up where I would like. But surprised that this however, she was improving. At rest her saturations are 9192% but when she walks it will drop down. We will see if she qualifies for a two-step and if she does we will send her home on oxygen but I believe this will be short-lived. She sounds quite good on exam today. She tolerated this procedure quite well. I will see her back in the office next week with a chest x-ray. (2) Paraspinal mass:
[2019-07-13] MEDS: INSULIN ASPART 100 UNITS/ML 3 ML PEN SC SCH ×2 (08:50→12:44)
[2019-07-13] MEDS: OXYCODONE HCL IR 5 MG TAB (IMMEDIATE RELEASE) PO PRN (11:34)
== END 2019-07-13 14:22 | disposition home or self-care (01) | DRG 845 ==
LOC: ASU 09:34 → 3W 14:34

== ENCOUNTER 2019-11-17 16:53 | Observation (INO) ==
[2019-11-17] MEDS ORDERED: ALBUTEROL HFA 8 GM INHALER INH ONE (17:11)
[2019-11-17] MEDS ORDERED: methylPREDNISolone 125 MG/2 ML VIAL IV STA (17:11)
--- NOTE | 2019-11-17 17:11 | Emergency Department Note ---
ED Provider Note NAME: BRETT OLIVO AGE: 74 SEX: F ARRIVES VIA: Ambulance INFORMANT: [Patient] ED PROVIDER(S): Rajinder Chapman MD CHIEF COMPLAINT: Shortness of breath IMPRESSION: Acute asthma exacerbation PLAN: Disposition: Admitted Condition: [Good] MEDICAL DECISION MAKING: The patient is a 74-year-old female that was referred from the PCP office due to shortness of breath cough, and lower respiratory symptoms. Flu testing was negative in the office. Patient notes she is very short of breath with simple ambulation. She does have a history of asthma. She has been using her inhalers. The patient was given multiple puffs of albuterol. She was given IV Solu-Medrol. Chest imaging revealed a pneumonitis. She was given IV Rocephin and IV doxycycline. On reassessment she was feeling somewhat better. I discussed further management in the hospital and the patient was in agreement. Triage Nursing notes reviewed and agree them. Vital Signs: reviewed and remarkable for [no significant abnormalities] Differential diagnosis: Reactive airway disease, pneumonia, pneumothorax, COPD, CHF, infections, cardiac ischemia, pulmonary embolism, musculoskeletal, gastrointestinal, as well as other pathologies. ER treatment provided: IV Solu-Medrol Albuterol MDI 6 puffs IV Rocephin IV doxycycline Diagnostics interpreted by me: ECG: Rate: 89 Rhythm: Normal sinus rhythm [place]: Normal QRS: Normal ST segements: No ST elevation or depression Other: Poor R wave progression Cardiac Monitoring: Cardiac monitoring ordered: The patient was placed on continuous cardiac monitoring and observed. It revealed a normal sinus rhythm at 94 bpm without ectopy or evidence of dysrhythmia. Laboratory studies: [See below] a slight leukopenia on CBC. Chemistry panel unremarkable. Troponin negative. Imaging studies: X-ray concerning for pneumonitis Consultation(s): Consultation was made with internal medicine, Dr. Boy Ayers. HPI: The patient is a 74 year old female who presents to the Emergency Room with complaints of shortness of breath. This started several days ago and is worsening. The patient also notes the following associated symptoms, runny nose, feeling feverish and chills, dyspnea on exertion, mild cough. The patient has tried her inhalers for relieving factors. Current pain is rated as 0/10. The patient went to her primary office. A rapid flu test was performed and was negative. Given her dyspnea on exertion, wheezing, history of asthma and URI symptoms she was sent to the ER. She has not had any travel history or known exposure to anyone with novel coronavirus. She also notes a mild headache. She has a dry mouth and runny nose. Pt denies LOC, diaphoresis, visual changes, neck pain, chest pain, nausea, vomiting, abdominal pain, back pain, melena, hematochezia, urinary symptoms, numbness, weakness, lymphadenopathy, rash, or other complaints. ROS: See above HPI for pertinent positives & negatives. A total of [10] systems reviewed and were otherwise negative. PAST MEDICAL HISTORY:Asthma, hypertension PAST SURGICAL HISTORY:[See Below] FAMILY HISTORY:[See Below] SOCIAL HISTORY:Lives with family HOME MEDICATIONS:Reviewed in the EMR ALLERGIES:Metformin, NSAIDs, and latex VITALS:[See Below] PHYSICAL EXAMINATION: GENERAL: Awake, alert, mildly dyspneic-appearing, in no distress HENT: Normocephalic, atraumatic. Oropharynx unremarkable. EYES: Normal conjunctiva. Sclera non-icteric. NECK: Inspection normal. Non-tender. Supple. No nuchal rigidity. FROM. No masses. RESPIRATORY: Coarse breath sounds to auscultation. Mild wheezes. No rales. Normal respiratory effort. CARDIAC: Normal rate. Normal rhythm. No murmurs. No rubs. Extremities warm and well perfused. Pulses equal. No JVD. GI: Soft, non-distended. No tenderness to palpation. No rebound or guarding. No masses. RECTAL: Deferred. MUSCULOSKELETAL: Atraumatic. Chest examination reveals no tenderness. The back is symmetrical on inspection without obvious abnormality. There is no CVA tenderness to palpation. No joint edema. LOWER EXTREMITIES: Calves are equal size bilaterally and non-tender. No edema. No discoloration. NEURO: Normal sensorium. No sensory or motor deficits noted. SKIN: No rash or jaundice noted. ED COURSE: Procedures: [none] [Critical Care:] [None] Rajinder Chapman MD Impression & Plan Asthma with exacerbation, Pneumonitis, SOB (shortness of breath) Past Med/Surg History Surgical History (Updated 11/17/19 @ 08:25 by Vic Hernandez DO) H/O colonoscopy 06/2012 Normal Repeat 10 yrs H/O excision of mass (07/11/19) Left Robotic Video Assisted Thoracoscopy with Excision of Paraspinal Mass Dr. 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 Other Information That Helps Us Care for You: No Feels Safe at Home: Yes Safety Concerns: Feels Safe At This Time Smoking Status: Never smoker Second Hand Exposure: No ; Hx Alcohol Use: No Hx Substance Use: No Childhood Exposure to Second-Hand Smoke: No Dental Care, Regularly: No Physical Activity Frequency: Daily Seatbelt Use: always Sunscreen Use: Yes Results & Data Vital Signs Vital Signs - 24 hr 11/17/19 16:55 11/17/19 16:57 11/17/19 18:04 Temperature 36.7 C Temperature Source Oral Pulse Rate 92 H Pulse Rate [Right Finger] 86 Respiratory Rate 27 H 20 Respiratory Effort / Characteristics Grunting Respiratory Depth Deep Blood Pressure 121/75 Blood Pressure [Right Arm] 131/95 Blood Pressure Mean 90 Blood Pressure Mean [Right Arm] 107 Blood Pressure Position Sitting Pulse Oximetry 94 100 Oxygen Delivery Method Room Air Sepsis Recent Fever Within 48 Hours No Sepsis New/Unexplained Change in Mental Status No Sepsis Action Taken by Nursing No Action Required 11/17/19 19:00 Temperature Temperature Source Pulse Rate Pulse Rate [Right Finger] 84 Respiratory Rate 29 H Respiratory Effort / Characteristics Respiratory Depth Blood Pressure Blood Pressure [Right Arm] 116/69 Blood Pressure Mean Blood Pressure Mean [Right Arm] 84 Blood Pressure Position Pulse Oximetry 91 Oxygen Delivery Method Room Air Sepsis Recent Fever Within 48 Hours Sepsis New/Unexplained Change in Mental Status Sepsis Action Taken by Nursing Laboratory Data Result diagrams: 11/17/19 18:00 11/17/19 18:00 Lab Results 11/17/19 11/17/19 11/17/19 Range/Units 18:00 18:00 18:00 WBC 4.14 L (4.8-10.8) K/uL RBC 4.38 (4.2-5.4) M/uL Hgb 13.8 (12.0-16.0) g/dL Hct 41.9 (37-47) % MCV 95.7 (80-100) fL MCH 31.5 (25-34) pg MCHC 32.9 (32-36) g/dL RDW Std Deviation 44.6 (36.4-46.3) fL RDW Coeff of Jamal 12.9 (11.5-14.5) % Plt Count 160 (130-400) K/uL MPV 11.1 H (7.4-10.4) fL Immature Gran % (Auto) 0.2 % Neut % (Auto) 60.6 % Lymph % (Auto) 23.7 % Mcdonough % (Auto) 8.2 % Eos % (Auto) 6.8 % Baso % (Auto) 0.5 % Immature Gran # (Auto) 0.01 (0.00-0.02) K/uL Neut # (Auto) 2.51 (1.4-6.5) K/uL Lymph # (Auto) 0.98 L (1.2-3.4) K/uL Mcd[place]ough # (Auto) 0.34 (0.11-0.59) K/uL Eos # (Auto) 0.28 (0-0.5) K/uL Baso # (Auto) 0.02 (0-0.2) K/uL PT 10.2 (9.0-12.0) Seconds INR 1.0 (0.9-1.1) APTT 26.8 (21.0-31.0) Seconds PTT Ratio 1.0 Sodium 141 (136-145) mmol/L Potassium 4.1 (3.5-5.1) mmol/L Chloride 109 H (98-107) mmol/L Carbon Dioxide 28 (21-32) mmol/L Anion Gap 4.0 (3-11) BUN 18 (7-18) mg/dl Creatinine 0.80 (0.6-1.2) mg/dl Est Cr Clr Drug Dosing 63.9 ml/min Est GFR ( Amer) 85.4 Est GFR (Non-Af Amer) 73.7 BUN/Creatinine Ratio 21.9 H (10-20) Glucose 98 (70-99) mg/dl Calcium 9.0 (8.5-10.1) mg/dl Total Bilirubin 0.5 (0.2-1) mg/dl AST 22 (15-37) U/L ALT 32 (12-78) U/L Alkaline Phosphatase 103 (45-117) U/L Troponin I < 0.015 (0-0.045) ng/ml NT-Pro-B Natriuret Pep 57 (0-900) pg/ml Total Protein 6.9 (6.4-8.2) gm/dl Albumin 3.4 (3.4-5.0) gm/dl Globulin 3.5 (2.5-4.0) gm/dl Albumin/Globulin Ratio 1.0 (0.9-2) Administered Medications Gabapentin (Neurontin) 400 mg PO TID ROBI Stop: 12/17/19 20:59 Last Admin: 11/17/19 21:54 Dose: 400 mg Documented by: [id number] Heparin Sodium (Porcine) (Heparin Sodium (Porcine)) 5,000 units SQ Q12 ROBI Stop: 12/17/19 20:59 Last Admin: 11/17/19 21:55 Dose: 5,000 units Documented by: [id number] Cosigned by: [id number] Insulin Aspart (Novolog Flexpen) 0 units SC ACHS ROBI Stop: 12/17/19 20:59 Last Admin: 11/17/19 21:53 Dose: 3 units Documented by: [id number] Cosigned by: [id number] Paroxetine HCl (Paxil) 20 mg PO HS ROBI Stop: 12/17/19 20:59 Last Admin: 11/17/19 21:54 Dose: 20 mg Documented by: [id number] Simvastatin (Zocor) 20 mg PO QPM ROBI Stop: 12/17/19 20:59 Last Admin: 11/17/19 21:54 Dose: 20 mg Documented by: [id number] Discontinued Medications Albuterol (Ventolin Hfa) 6 puffs INH NOW ONE Stop: 11/17/19 17:12 Last Admin: 11/17/19 18:02 Dose: 6 puffs Documented by: [id number] Budesonide (Pulmicort Respules) 0.5 mg NEB ONCE ONE Stop: 11/17/19 20:44 Last Admin: 11/17/19 21:33 Dose: 0.5 mg Documented by: [id number] Ceftriaxone Sodium (Rocephin) 1,000 mg in 50 mls @ 100 mls/hr IV NOW STA Stop: 11/17/19 18:54 Last Infusion: 11/17/19 21:05 Dose: 0 mls/hr Documented by: [id number] Admin: 11/17/19 19:07 Dose: 100 mls/hr Documented by: [id number] Doxycycline Hyclate 100 mg/ (Dextrose) 110 mls @ 50 mls/hr IV NOW STA Stop: 11/17/19 20:36 Last Infusion: 11/17/19 21:19 Dose: 0 mls/hr Documented by: [id number] Admin: 11/17/19 19:07 Dose: 50 mls/hr Documented by: [id number] Methylprednisolone (Solumedrol) 125 mg IV NOW STA Stop: 11/17/19 17:12 Last Admin: 11/17/19 18:01 Dose: 125 mg Documented by: [id number] Discharge Plan Visit Data *Final* Discharge Date/Time: 11/17/19 20:20 Chief Complaint: Shortness of Breath/Dyspnea ED Provider: Rajinder Chapman Discharge Problem: Asthma with exacerbation, Pneumonitis, SOB (shortness of breath) Patient Disposition: Admitted As Inpatient Discharge Instructions Interventions: ED Discharge Assessment Last Done: 11/17/19 20:20
--- NOTE | 2019-11-17 17:59 | XRay Report ---
XR chest 1V portable HISTORY: 74 years-old Female Dyspnea acute shortness of breath COMPARISON: Chest radiograph 07/14/2019, chest CT 05/18/2019 TECHNIQUE: Portable AP view of the chest FINDINGS: Cardiac silhouette is enlarged, unchanged. No pneumothorax, large pleural effusion or overt pulmonary edema. Ill-defined patchy left lung base opacities. Degenerative changes of the shoulders and spine. IMPRESSION: 1. Left lung base opacities suggest atelectasis or pneumonitis. 2. Cardiomegaly without overt pulmonary edema. ACT 112: Negative or not required by law. The above report was generated using voice recognition software. It may contain grammatical, syntax o r spelling errors. Electronically signed by: Marc Oropeza M.D. 11/17/2019 5:57 PM
[2019-11-17 18:14] LABS: Basophils # (auto) 0.02 K/uL (0-0.2); Basophils % (auto) 0.5 %; Eosinophils # (auto) 0.28 K/uL (0-0.5); Eosinophils % (auto) 6.8 %; Hematocrit (blood only) 41.9 % (37-47); Hemoglobin 13.8 g/dL (12.0-16.0); Immature Granulocytes # (auto) 0.01 K/uL (0.00-0.02); Immature Granulocytes % (auto) 0.2 %; Lymphocytes # (auto) 0.98 K/uL (1.2-3.4); Lymphocytes % (auto) 23.7 %; Mean Corpuscular Hemoglobin 31.5 pg (25-34); Mean Corpuscular Hgb Conc 32.9 g/dL (32-36); Mean Corpuscular Volume 95.7 fL (80-100); Mean Platelet Volume 11.1 fL (7.4-10.4); Monocytes # (auto) 0.34 K/uL (0.11-0.59); Monocytes % (auto) 8.2 %; Neutrophils # (auto) 2.51 K/uL (1.4-6.5); Neutrophils % (auto) 60.6 %; Platelet Count 160 K/uL (130-400); RDW Coefficient of Variation 12.9 % (11.5-14.5); RDW Standard Deviation 44.6 fL (36.4-46.3); Red Blood Count 4.38 M/uL (4.2-5.4); White Blood Count 4.14 K/uL (4.8-10.8)
[2019-11-17 18:25] LABS: Partial Thromboplastin Time 26.8 Seconds (21.0-31.0); Prothrombin Time 10.2 Seconds (9.0-12.0)
[2019-11-17] MEDS ORDERED: cefTRIAXone SODIUM 1,000 MG/50 ML BAG IV STA (18:25)
[2019-11-17] MEDS ORDERED: DOXYCYCLINE HYCLATE 100 MG in DEXTROSE 5% 100 ML IV STA (18:25)
[2019-11-17 18:32] LABS: Alanine Aminotransferase 32 U/L (12-78); Albumin Level 3.4 gm/dl (3.4-5.0); Aspartate Aminotransferase 22 U/L (15-37); BUN Creatinine Ratio 21.9 (10-20); Blood Urea Nitrogen 18 mg/dl (7-18); Carbon Dioxide 28 mmol/L (21-32); Chloride 109 mmol/L (98-107); Creatinine Clr Calc Pharmacy 63.9 ml/min; Est GFR (African American) 85.4; Est GFR (Non-African American) 73.7; Glucose 98 mg/dl (70-99); Potassium 4.1 mmol/L (3.5-5.1); Sodium 141 mmol/L (136-145)
[2019-11-17 18:37] LABS: Alkaline Phosphatase 103 U/L (45-117); Bilirubin,Total 0.5 mg/dl (0.2-1); Globulin 3.5 gm/dl (2.5-4.0); NT Pro B Type Natriuretic Pept 57 pg/ml (0-900); Total Protein 6.9 gm/dl (6.4-8.2); Troponin I < 0.015 ng/ml (0-0.045)
[2019-11-17] MEDS ORDERED: CARBOHYDRATES FOR HYPOGLYCEMIA PO PRN (20:02)
[2019-11-17] MEDS ORDERED: GLUCOSE 10 TABS/TUBE PO PRN (20:02)
[2019-11-17] MEDS ORDERED: GLUCAGON FOR INJ 1 MG VIAL SQ PRN (20:02)
[2019-11-17] MEDS ORDERED: GLUCOSE 40% GEL 15 GM TUBE PO PRN (20:02)
[2019-11-17] MEDS ORDERED: DEXTROSE 50% 50 ML SYRINGE IV PRN (20:02)
[2019-11-17] MEDS ORDERED: ACETAMINOPHEN 325 MG TAB PO PRN (20:43)
[2019-11-17] MEDS ORDERED: MAGNESIUM HYDROXIDE SUSP 30 ML UDC PO PRN (20:43)
[2019-11-17] MEDS ORDERED: LORazepam 0.5 MG TAB PO PRN (20:43)
[2019-11-17] MEDS ORDERED: GUAIFENESIN/DEXTROM SYRUP 200MG/20MG 10ML UDC PO PRN (20:43)
[2019-11-17] MEDS ORDERED: ONDANSETRON INJ 2 MG/ML 2 ML VIAL IV PRN (20:43)
[2019-11-17] MEDS ORDERED: ALUMINUM/MAGNESIUM SUSP 30 ML UDC PO PRN (20:43)
[2019-11-17] MEDS ORDERED: BUDESONIDE 0.5 MG/2 ML VIAL (PULMICORT) NEB ONE (20:43)
[2019-11-17] MEDS ORDERED: CETIRIZINE HCL 10 MG TABLET PO PRN (20:43)
[2019-11-17] MEDS ORDERED: SIMVASTATIN 20 MG TAB PO SCH (21:00)
[2019-11-17] MEDS ORDERED: PARoxetine HCL 20 MG TAB PO SCH (21:00)
[2019-11-17] MEDS: INSULIN ASPART 100 UNITS/ML 3 ML PEN SC SCH (21:53)
[2019-11-17] MEDS: GABAPENTIN 400 MG CAP PO SCH (21:54)
[2019-11-17] MEDS: HEPARIN SOD 5,000 UNIT/0.5 ML VIAL SQ SCH (21:55)
--- NOTE | 2019-11-17 22:42 | History & Physical Report ---
Date of Service November 17, 2019 Assessment & Plan (1) Asthma with exacerbation: Asthma exacerbation/pneumonitis- Duonebs every 4 hours while awake and every 2 hours when necessary. Ceftriaxone 1 g IV daily. Pulmicort Respules 0.5 mg inhaled twice daily Guaifenesin extended release 600 mg p.o. twice daily Nasal cannula oxygen, titrate to keep pulse ox 94 to 95%. Methylprednisolone 40 mg IV every 8 hours, will need to follow blood sugars closely. Present on Admission?: Yes (2) Pneumonitis: See above Present on Admission?: Yes (3) Lumbar facet joint syndrome: No active symptoms at this time. Present on Admission?: Yes (4) Gastroesophageal reflux disease: Continue pantoprazole 40 mg p.o. daily Present on Admission?: Yes (5) Dyslipidemia: Continue simvastatin 20 mg every evening Present on Admission?: Yes (6) HTN (hypertension): Continue lisinopril with hold parameters. Present on Admission?: Yes (7) Type 2 diabetes mellitus: Hold metformin, sitagliptin/metformin ER and dulaglutide. Place on Accu-Cheks before meals and at bedtime with NovoLog coverage for scale Present on Admission?: Yes (8) Depression: Continue paroxetine Present on Admission?: Yes History of Present Illness Chief Complaint: The patient was referred to the emergency department from her PCPs office where she presented with symptoms of shortness of breath, congestion and cough. Primary Care Provider: Vic Hernandez DO The patient is a 74-year-old female with a past medical history including lumbar facet joint syndrome, obesity class I, GERD, dyslipidemia, hypertension, asthma, lumbar radiculopathy, depression and diabetes mellitus type 2. She presents with several days of shortness of breath, congestion and cough, which have worsened significantly over the past 24 hours. She has been using her inhalers and nebulizers without significant improvement. In the emergency department she was given Solu-Medrol 125 mg IV, ceftriaxone 1 g IV, doxycycline 100 mg IV and and albuterol HFA, and reported some improvement in symptoms. Allergies Allergy/AdvReac Type Severity Reaction Status Date / Time latex Allergy Mild itching Verified 11/17/19 15:43 metformin Allergy Mild GI upset Verified 11/17/19 15:43 NSAIDS (Non-Steroidal Allergy Mild bleeding Verified 11/17/19 15:43 Anti-Inflamma Home Medications Home Medications Medication Instructions Recorded Confirmed Type ascorbic acid (vitamin C) 500 mg 500 mg PO QAM 01/02/19 11/17/19 History tablet fish,bora,flax oils-om3,6,9no1 1 cap PO QAM cap 01/02/19 11/17/19 History 1,200 mg capsule lisinopril 10 mg tablet 10 mg PO QAM 01/02/19 11/17/19 History multivitamin 1 tab PO QAM 01/02/19 11/17/19 History blood sugar diagnostic #10 ea 02/21/19 11/17/19 History calcium carbonate 600 mg (1,500 1 tab PO QAM 02/21/19 11/17/19 History mg)-vitamin D3 200 unit tablet cetirizine 10 mg tablet 10 mg PO DAILY PRN tab 02/21/19 11/17/19 History fluocinonide 0.05 % topical 1 appln TOPICAL BID PRN #1 gm 02/21/19 11/17/19 History ointment lancets 33 gauge #100 ea 02/21/19 11/17/19 History paroxetine HCl 20 mg tablet 20 mg PO HS #90 tab 02/22/19 11/17/19 Rx albuterol sulfate 90 mcg/actuation 2 puffs INH Q4H PRN #18 gm 05/03/19 11/17/19 Rx aerosol inhaler albuterol sulfate 2.5 mg INH Q4H PRN #90 ml 05/10/19 11/17/19 Rx nebulizer accessories #1 ea 05/10/19 11/17/19 Rx nebulizers #1 ea 05/10/19 11/17/19 Rx simvastatin 20 mg tablet 20 mg PO QPM #90 tab 06/13/19 11/17/19 Rx celecoxib 200 mg capsule 200 mg PO QAM cap 08/18/19 11/17/19 History zafirlukast 20 mg tablet 20 mg PO Q12H tab 08/18/19 11/17/19 History metformin 1,000 mg tablet,extended 1,000 mg PO DAILY #90 tab 08/28/19 11/17/19 Rx release 24hr sitagliptin 100 mg-metformin ER 1 tab PO DAILY #90 tab 08/28/19 11/17/19 Rx 1,000 mg tablet,extended [id number] mp gabapentin 400 mg capsule 400 mg PO TID #270 cap 01/16/20 03/20/20 Rx dulaglutide 0.75 mg/0.5 mL 0.75 mg SQ WEEKLY 90 Days #45 ml 10/24/19 11/17/19 Rx subcutaneous pen injector lorazepam 0.5 mg tablet 0.5 mg PO HS PRN #90 tab 10/24/19 11/17/19 Rx pantoprazole 40 mg tablet,delayed 40 mg PO DAILY #90 tab 10/31/19 11/17/19 Rx release Past Med/Surg History Surgical History (Updated 11/17/19 @ 08:25 by Vic Hernandez, DO) H/O colonoscopy 06/2012 Normal Repeat 10 yrs H/O excision of mass (07/11/19) Left Robotic Video Assisted Thoracoscopy with Excision of Paraspinal Mass Dr. 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 Other Information That Helps Us Care for You: No Feels Safe at Home: Yes Safety Concerns: Feels Safe At This Time Smoking Status: Never smoker Second Hand Exposure: No ; Hx Alcohol Use: No Hx Substance Use: No Childhood Exposure to Second-Hand Smoke: No Dental Care, Regularly: No Physical Activity Frequency: Daily Seatbelt Use: always Sunscreen Use: Yes Review of Systems Review of Systems: The patient denies chest pain, palpitations, lower extremity swelling, sore throat, fevers, chills, sweats, nausea, vomiting, diarrhea , constipation, abdominal pain, pelvic pain, blood in urine or stool, dysuria, urinary frequency or urgency, lightheadedness, dizziness, memory loss, loss of consciousness, rash, abnormal bruising or bleeding, imbalance, focal or generalized weakness, numbness or tingling in arms or legs, generalized arthralgias or myalgias, neck pain, or night sweats. The review of systems is otherwise negative other than for that already noted above, and at least 10 systems have been reviewed. Physical Exam Physical Exam: The patient is awake, alert and oriented 3, normocephalic and atraumatic, lying in bed and in no acute distress. HEENT--PERRL, EOMI, mucous membranes and oropharynx dry. Neck--supple. No JVD. No bruits. Thyroid normal, trachea midline, no adenopathy. Heart--normal S1 and S2. No murmurs, rubs or gallops. Lungs--coarse breath sounds and wheezes bilaterally. No respiratory distress, no accessory muscle use. Abdomen--normal bowel sounds and soft. Nontender. Nondistended. Extremities--no cyanosis or clubbing. No edema. Dermatologic--normal skin turgor, normal color, no abnormal lymph nodes, no rash. Neurologic--cranial nerves II through XII grossly intact. Rheumatologic--normal range of motion. Psychiatric--normal affect. Results & Data Vital Signs (Past 12 Hours) Vital Signs Temp Pulse Pulse Resp BP BP Pulse Ox 11/17/19 22:16 97.9 F 91 H 16 133/75 93 11/17/19 21:36 97 H 16 92 11/17/19 20:43 98.1 F 88 20 138/74 90 11/17/19 20:20 85 18 123/70 93 11/17/19 19:00 84 29 H 116/69 91 11/17/19 18:04 86 20 131/95 100 11/17/19 16:55 98.1 F 92 H 27 H 121/75 94 Laboratory Results Laboratory Results WBC 4.14 K/uL (4.8-10.8) L 11/17/19 18:00 RBC 4.38 M/uL (4.2-5.4) 11/17/19 18:00 Hgb 13.8 g/dL (12.0-16.0) 11/17/19 18:00 Hct 41.9 % (37-47) 11/17/19 18:00 MCV 95.7 fL (80-100) 11/17/19 18:00 MCH 31.5 pg (25-34) 11/17/19 18:00 MCHC 32.9 g/dL (32-36) 11/17/19 18:00 RDW Std Deviation 44.6 fL (36.4-46.3) 11/17/19 18:00 RDW Coeff of Jamal 12.9 % (11.5-14.5) 11/17/19 18:00 Plt Count 160 K/uL (130-400) 11/17/19 18:00 MPV 11.1 fL (7.4-10.4) H 11/17/19 18:00 Immature Gran % (Auto) 0.2 % 11/17/19 18:00 Neut % (Auto) 60.6 % 11/17/19 18:00 Lymph % (Auto) 23.7 % 11/17/19 18:00 Bath % (Auto) 8.2 % 11/17/19 18:00 Eos % (Auto) 6.8 % 11/17/19 18:00 Baso % (Auto) 0.5 % 11/17/19 18:00 Immature Gran # (Auto) 0.01 K/uL (0.00-0.02) 11/17/19 18:00 Neut # (Auto) 2.51 K/uL (1.4-6.5) 11/17/19 18:00 Lymph # (Auto) 0.98 K/uL (1.2-3.4) L 11/17/19 18:00 Bath # (Auto) 0.34 K/uL (0.11-0.59) 11/17/19 18:00 Eos # (Auto) 0.28 K/uL (0-0.5) 11/17/19 18:00 Baso # (Auto) 0.02 K/uL (0-0.2) 11/17/19 18:00 PT 10.2 Seconds (9.0-12.0) 11/17/19 18:00 INR 1.0 (0.9-1.1) 11/17/19 18:00 APTT 26.8 Seconds (21.0-31.0) 11/17/19 18:00 PTT Ratio 1.0 11/17/19 18:00 Sodium 141 mmol/L (136-145) 11/17/19 18:00 Potassium 4.1 mmol/L (3.5-5.1) 11/17/19 18:00 Chloride 109 mmol/L (98-107) H 11/17/19 18:00 Carbon Dioxide 28 mmol/L (21-32) 11/17/19 18:00 Anion Gap 4.0 (3-11) 11/17/19 18:00 BUN 18 mg/dl (7-18) 11/17/19 18:00 Creatinine 0.80 mg/dl (0.6-1.2) 11/17/19 18:00 Est Cr Clr Drug Dosing 63.9 ml/min 11/17/19 18:00 Est GFR ( Amer) 85.4 11/17/19 18:00 Est GFR (Non-Af Amer) 73.7 11/17/19 18:00 BUN/Creatinine Ratio 21.9 (10-20) H 11/17/19 18:00 Glucose 98 mg/dl (70-99) 11/17/19 18:00 POC Glucose 211 mg/dl (70-99) H 11/17/19 20:42 Calcium 9.0 mg/dl (8.5-10.1) 11/17/19 18:00 Total Bilirubin 0.5 mg/dl (0.2-1) 11/17/19 18:00 AST 22 U/L (15-37) 11/17/19 18:00 ALT 32 U/L (12-78) 11/17/19 18:00 Alkaline Phosphatase 103 U/L (45-117) 11/17/19 18:00 Troponin I < 0.015 ng/ml (0-0.045) 11/17/19 18:00 NT-Pro-B Natriuret Pep 57 pg/ml (0-900) 11/17/19 18:00 Total Protein 6.9 gm/dl (6.4-8.2) 11/17/19 18:00 Albumin 3.4 gm/dl (3.4-5.0) 11/17/19 18:00 Globulin 3.5 gm/dl (2.5-4.0) 11/17/19 18:00 Albumin/Globulin Ratio 1.0 (0.9-2) 11/17/19 18:00 Urine Color Yellow 11/17/19 23:31 Urine Appearance Clear (Clear) 11/17/19 23:31 Urine pH 5.5 (4.5-7.5) 11/17/19 23:31 Ur Specific [place] 1.021 (1.000-1.030) 11/17/19 23:31 Urine Protein Negative (Negative) 11/17/19 23:31 Urine Glucose (UA) 3+ (Negative) H 11/17/19 23:31 Urine Ketones Trace (Negative) H 11/17/19 23:31 Urine Blood Negative (Negative) 11/17/19 23:31 Urine Nitrite Negative (Negative) 11/17/19 23:31 Urine Bilirubin Negative (Negative) 11/17/19 23:31 Urine Urobilinogen Negative (Negative) 11/17/19 23:31 Ur Leukocyte Esterase Negative (Negative) 11/17/19 23:31 Diagnostic Findings [place], [place] [phone] XRay Report Patient: BRETT OLIVO Date: 11/17/19 MR#: [id number]: [address] [facility] Acct ID:[id number]: Date: 1945[facility] Zip: [place] [address] Age: 74Location: ED Sex: F Room/Bed: Att Phy:Diagnosis: ILLNESS Yasmin Phy: Vic Hernandez, DOService Date: 11/17/19 Fam Phy:Interpreting Phy: Jose Oropeza Admit Phy: Ordering Phy: Rajinder Chapman MD cc: ~ XR chest 1V portable HISTORY: 74 years-old Female Dyspnea acute shortness of breath COMPARISON: Chest radiograph 07/14/2019, chest CT 05/18/2019 TECHNIQUE: Portable AP view of the chest FINDINGS: Cardiac silhouette is enlarged, unchanged. No pneumothorax, large pleural effusion or overt pulmonary edema. Ill-defined patchy left lung base opacities. Degenerative changes of the shoulders and spine. IMPRESSION: 1. Left lung base opacities suggest atelectasis or pneumonitis. 2. Cardiomegaly without overt pulmonary edema. ACT 112: Negative or not required by law. The above report was generated using voice recognition software. It may contain grammatical, syntax or spelling errors. Electronically signed by: Marc Oropeza M.D. 11/17/2019 5:57 PM Dictated: 11/17/19 1756 Transcribed: 11/17/191755 Code Status & VTE Plan Code Status Full code VTE Prophylaxis Plan VTE Prophylaxis will be ordered: Yes PG Care Time/CCT Total # of Minutes Spent Total Time Spent with Patient: Total time spent is greater than 50% in coordination of care (as documented) at patient's floor/unit and/or counseling patient: Coding Level of Care Code 46405 Initial Inpt Care Lvl 3 Diagnoses Asthma with exacerbation J45.901 Pneumonitis J18.9 Lumbar facet joint syndrome M47.816 Gastroesophageal reflux disease K21.9 Dyslipidemia E78.5 HTN (hypertension) I10 Type 2 diabetes mellitus E11.9 Diabetes mellitus complication status: with hyperglycemia Depression F32.9 (1) Type 2 diabetes mellitus Diabetes mellitus complication status: with hyperglycemia
[2019-11-17 23:50] LABS: Appearance Urine Clear (Clear); Bilirubin Urine Negative (Negative); Blood Urine Negative (Negative); Color Urine Yellow; Glucose Urine UA 3+ (Negative); Ketones Urine Trace (Negative); Leukocyte Esterase Urine Negative (Negative); Nitrite Urine Negative (Negative); Protein Urine Negative (Negative); Specific Gravity Urine 1.021 (1.000-1.030); Urobilinogen Urine Negative (Negative); pH Urine 5.5 (4.5-7.5)
[2019-11-18] MEDS: methylPREDNISolone 40 MG in SYRINGE 0 ML IV SCH ×2 (04:48→12:01)
[2019-11-18] MEDS ORDERED: BUDESONIDE 0.5 MG/2 ML VIAL (PULMICORT) NEB SCH (07:00)
[2019-11-18] MEDS: ALBUT/IPRATROP 3MG/0.5MG NEB 3 ML VIAL NEB SCH ×2 (07:42→11:42)
[2019-11-18 07:47] LABS: Estimated Average Glucose 177 mg/dl; Hemoglobin A1C 7.8 % (4.5-5.6)
[2019-11-18] MEDS: GABAPENTIN 400 MG CAP PO SCH ×2 (08:09→14:02)
[2019-11-18] MEDS: HEPARIN SOD 5,000 UNIT/0.5 ML VIAL SQ SCH (08:12)
[2019-11-18] MEDS: INSULIN ASPART 100 UNITS/ML 3 ML PEN SC SCH ×2 (08:14→12:00)
[2019-11-18] MEDS ORDERED: lisinopriL 10 MG TAB PO SCH (09:00)
[2019-11-18] MEDS ORDERED: CeleBREX 200 MG CAP PO SCH (09:00)
[2019-11-18] MEDS ORDERED: PANTOprazole 40 MG TAB PO SCH (09:00)
[2019-11-18] MEDS ORDERED: CALCIUM 600MG + VIT D 400 IU TAB PO SCH (09:00)
[2019-11-18] MEDS ORDERED: ASCORBIC ACID 500 MG TAB PO SCH (09:00)
[2019-11-18] MEDS ORDERED: MULTIVITAMIN TAB PO SCH (09:00)
--- NOTE | 2019-11-18 10:48 | Electrocardiogram Report ---
Test Reason : Blood Pressure : / mmHG Vent. Rate : 089 BPM Atrial Rate : 089 BPM P-R Int : 146 ms QRS Dur : 086 ms QT Int : 382 ms P-R-T Axes : 001 -11 036 degrees QTc Int : 464 ms Normal sinus rhythm When compared with ECG of 07-JUL-2019 13:49, No significant change was found Confirmed by Deon Vanegas ([id number]) on 11/18/2019 10:48:12 AM Referred By: REFERRED SELF Confirmed By:Will Vanegas
[2019-11-18 12:33] LABS: Adenovirus PCR Not Detected (NotDetected); Coronavirus 229E PCR Not Detected (NotDetected); Coronavirus HKU1 PCR Not Detected (NotDetected); Coronavirus NL63 PCR Not Detected (NotDetected); Coronavirus OC43PCR Not Detected (NotDetected); Human Metapneumovirus PCR Not Detected (NotDetected); Influenza A PCR Not Detected (NotDetected); Influenza B PCR Not Detected (NotDetected); Parainfluenza Virus 1 PCR Not Detected (NotDetected); Parainfluenza Virus 2 PCR Not Detected (NotDetected); Parainfluenza Virus 3 PCR Not Detected (NotDetected); Parainfluenza Virus 4 PCR Not Detected (NotDetected); Rhinovirus/Enterovirus PCR Not Detected (NotDetected)
[2019-11-18 12:34] LABS: Bordetella parapertussis PCR Not Detected (NotDetected); Bordetella pertussis PCR Not Detected (NotDetected); Chlamydia pneumoniae PCR Not Detected (NotDetected); Mycoplasma pneumoniae PCR Not Detected (NotDetected); Respiratory Syncytial VirusPCR Not Detected (NotDetected)
--- NOTE | 2019-11-18 14:54 | Discharge Summary ---
Date of Service November 18, 2019 Admission HPI Per Admitting Provider The patient is a 74-year-old female with a past medical history including lumbar facet joint syndrome, obesity class I, GERD, dyslipidemia, hypertension, asthma, lumbar radiculopathy, depression and diabetes mellitus type 2. She presents with several days of shortness of breath, congestion and cough, which have worsened significantly over the past 24 hours. She has been using her inhalers and nebulizers without significant improvement. In the emergency department she was given Solu-Medrol 125 mg IV, ceftriaxone 1 g IV, doxycycline 100 mg IV and and albuterol HFA, and reported some improvement in symptoms. Principal Diagnosis Asthma exacerbation Discharge Exam Constitutional WD/WN, vitals as above Eyes EOM intact bilaterally; no conjunctival abnormality ENMT external ear and nose normal, oropharynx normal Neck trachea midline, no thyromegaly normal visual inspection Respiratory no respiratory distress Auscultation: + wheezes (Mild) Cardiovascular RRR, no murmur, no edema Gastrointestinal (Abdomen) Inspection/Auscultation: abdomen normal to inspection; abdomen not distended Musculoskeletal no cyanosis or clubbing, extremities motor strength 5/5 Skin no rashes, warm and dry Neurologic moves all extremities and awake Psychiatric Orientation: alert, oriented to person and cooperative Discharge Data Allergies Allergy/AdvReac Type Severity Reaction Status Date / Time latex Allergy Mild itching Verified 11/17/19 15:43 metformin Allergy Mild GI upset Verified 11/17/19 15:43 NSAIDS (Non-Steroidal Allergy Mild bleeding Verified 11/17/19 15:43 Anti-Inflamma Consultations 11/17/19 20:06 ED Decision to Admit Stat 11/17/19 20:43 Consult Case Management - Discharge Planning Routine Hospital Course (1) Suspected [facility] coronavirus infection: Patient had symptoms, lab values, and CXR consistent with Covid-19. She did not have any known contact, though she works at the [employer] and also lives with 3 grandchildren (24, 15, & 8) who have been in school and at [facility]. - Flu PCR and [employer] respiratory panel were both negative - SARS-Cov-2/Covid-19 PCR was sent on 11/17 -> Patient was instructed to self- isolate and avoid going outside. She will be notified if it is positive. She was instructed to call her PCP prior to going and to return to the hospital with any additional shortness of breath. (2) Asthma with exacerbation: Asthma exacerbation/pneumonitis. CXR on 11/16 showed left lung base opacities suggest atelectasis or pneumonitis. Flu and Bio[employer] respiratory panel negative. - Patient was sent home on prednisone and course of azithromycin. - Discharged with instructions to continue DuoNebs (3) Type 2 diabetes mellitus: A1c was 7.8% this admission which is improving from priors. - Continue usual home regimen on discharge. - Sugars did not appear to jump too much (mid-200s) with high-dose steroids, and her overall steroid course will be fairly low and short, so no additional needs. (4) Pneumonitis: See above (5) Lumbar facet joint syndrome: No active symptoms at this time. (6) Gastroesophageal reflux disease: Continue pantoprazole 40 mg p.o. daily (7) Dyslipidemia: Continue simvastatin 20 mg every evening (8) HTN (hypertension): BP stable in the hospital. - Continue lisinopril with hold parameters. (9) Depression: No notable symptoms inpatient. - Continue paroxetine Total Time Total Time Spent Total Time Spent (In Minutes): 36 Discharge Plan Discharge Items Patient Disposition: Home - Self-Care Reason For Visit: ASTHMA EXACERBATION Discharge Diagnosis: Asthma exacerbation Activity: Resume your previous activity Non-emergency contact: Primary Care Provider Call non-emergency contact if: your symptoms worsen and your rectal temperature is above 100.4 Follow-up/Referrals: Vic Hernandez, [Primary Care Provider] - (PLEASE CALL YOUR PCP TO SET UP AN APPT FOR FOLLOW UP) Diet: Carb Consistent or DM2 Addtl Attending Provider Instructions: You were admitted to the hospital with an asthma exacerbation. We tested you for the flu which was negative along with about 16 other respiratory viruses which were all negative. We sent the coronovirus/Covid-19 virus, but it will not be back for at least a few days to a week. I believe your likelihood of having Covid-19 is low, but we are testing out of caution as it can have public health implications. This is super important, please, please follow the self-isolation precautions. Stay at your home and try to practice good hand hygiene as best as you can. Please do not go out shopping or to see friends or family who live outside of the home. Have other people get your medications for you. Marylu Arcos will contact you with the results of the coronavirus test as soon as we are able. I am sending a course of prednisone and antibiotic to your pharmacy. Please have a family member pick this up for you. Please take your first dose of antibiotic this afternoon when you get it, then every morning until it is gone. Please take the next dose of steroid tomorrow morning (11/19/2019). Please stop the lisinopril for now as it can also worsen a cough. Please speak w ith your PCP on Wednesday about when to restart it. Please use your at home nebulizers and inhalers. If you are feeling shortness of breath that does not improve with your breathing treatment, please call your doctor right away for recommendations. Pending Studies at Discharge: Yes (Coronavirus / Covid-19 testing) Stand-Alone Forms: My [employer], Smoking Cessation Medications and DC Order Prescriptions: New Robitussin Cough-Chest Adiel DM 5-100 mg/5 mL Liquid 10 ml PO Q6H PRN (Reason: cough) Qty: 118 RF: 0 prednisone 20 mg tablet 40 mg PO DAILY Qty: 8 RF: 0 azithromycin 250 mg tablet 250 mg PO DAILY Qty: 5 RF: 0 Continued ascorbic acid (vitamin C) 500 mg tablet 500 mg PO QAM RF: 0 fish,bora,flax oils-om3,6,9no1 1,200 mg capsule 1 cap PO QAM RF: 0 multivitamin tablet 1 tab PO QAM RF: 0 paroxetine HCl [Paxil] 20 mg tablet 20 mg PO HS Qty: 90 RF: 3 simvastatin [Zocor] 20 mg tablet 20 mg PO QPM Qty: 90 RF: 3 metformin 1,000 mg tablet extended release 24hr 1,000 mg PO DAILY Qty: 90 RF: 3 Janumet XR 100-1,000 mg tablet, ER multiphase 24 hr 1 tab PO DAILY Qty: 90 RF: 2 gabapentin [Neurontin] 400 mg capsule 400 mg PO TID Qty: 270 RF: 2 Trulicity 0.75 mg/0.5 mL pen injector 0.75 mg SQ WEEKLY 90 Days Qty: 45 RF: 3 lorazepam [Ativan] 0.5 mg tablet 0.5 mg PO HS PRN (Reason: Anxiety, restless legs) Qty: 90 RF: 0 pantoprazole [Protonix] 40 mg tablet,delayed release (DR/EC) 40 mg PO DAILY Qty: 90 RF: 3 (DME) nebulizers misc See Dose Instructions .ROUTE .MEDSUPPLY Qty: 1 RF: 0 (DME) nebulizer accessories kit See Dose Instructions .ROUTE .MEDSUPPLY Qty: 1 RF: 0 albuterol sulfate 2.5 mg /3 mL (0.083 %) solution for nebulization 2.5 mg INH Q4H PRN (Reason: shortness of breath or wheezing) Qty: 90 RF: 3 calcium carbonate-vitamin D3 600 mg(1,500mg) -200 unit tablet 1 tab PO QAM RF: 0 fluocinonide 0.05 % ointment 1 appln topical BID PRN (Reason: FLARE UPS) Qty: 1 RF: 0 (DME) lancets [OneTouch Delica Lancets] 33 gauge misc See Dose Instructions .ROUTE .MEDSUPPLY Qty: 100 RF: 0 (DME) OneTouch Ultra Blue Test Strip strip See Dose Instructions .ROUTE .MEDSUPPLY Qty: 10 RF: 0 cetirizine 10 mg tablet 10 mg PO DAILY PRN (Reason: allergies) RF: 0 albuterol sulfate [Ventolin HFA] 90 mcg/actuation HFA aerosol inhaler 2 puffs INH Q4H PRN (Reason: shortness of breath or wheezing) Qty: 18 RF: 3 zafirlukast [Accolate] 20 mg tablet 20 mg PO Q12H RF: 0 celecoxib 200 mg capsule 200 mg PO QAM RF: 0 Discontinued lisinopril [Zestril] 10 mg tablet 10 mg PO QAM RF: 0 Discharge Orders: Discharge Order (Routine); Ordered 11/18/19 Ordered By: Shad Sanders/Other Patient Handouts: 2019-nCoV, Asthma Dc Admission Data Admit Date/Time: 11/17/19 20:00 Attending Provider: Shad Maya Admit Provider: Boy Ayers Primary Care Provider: Vic Hernandez Other Providers: Shad Maay Other Interventions: Discharge Summary Assessment (RN) Last Done: 11/18/19 13:33 DC Date/Time DO NOT enter until pt leaves facility: 11/18/19 14:49 Coding Level of Care Code 49083 OBS Care - Discharge Diagnoses Suspected [facility] coronavirus infection R68.89 Asthma with exacerbation J45.901 Type 2 diabetes mellitus E11.9 Diabetes mellitus complication status: with hyperglycemia Pneumonitis J18.9 Lumbar facet joint syndrome M47.816 Gastroesophageal reflux disease K21.9 Dyslipidemia E78.5 HTN (hypertension) I10 Depression F32.9
[2019-11-18] MEDS ORDERED: cefTRIAXone SODIUM 2,000 MG in DEXTROSE 5% 50 ML IV SCH (16:00)
[2019-11-20 22:50] LABS: COVID-19 Patient Symptomatic? YES; SARS Coronavirus RNA Source NASOPHARYNGEAL
[2019-11-23 10:30] LABS: PAN-SARS Coronavirus RNA NEGATIVE (NEGATIVE); SARS CoV2 RNA (COVID-19) NEGATIVE (NEGATIVE)
--- NOTE | 2019-11-25 13:28 | History & Physical Bridge Note ---
Date of Service November 25, 2019 History & Physical Bridge Note Pt's niece, Deana Weston, called [facility] today as they had not been contacted regarding COVID-19 testing followup that was pending at d/c. I did review the chart and informed her that pt's testing resulted on 11/22 as neg. No other questions at this time
== END 2019-11-18 14:49 | disposition home or self-care (01) ==
LOC: ED 16:53 → 2N 16:53 → SUATTDRO 20:00 → 2N 20:20 → 2W 11-18 10:46

== ENCOUNTER 2025-05-10 16:35 | Inpatient (IN) ==
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
--- NOTE | 2025-05-10 17:17 | XRay Report ---
Chest radiograph, one view History: Trauma Comparison: None Findings: Single AP view of the chest performed. No focal consolidation or pleural effusion. No pneumothorax. The cardiomediastinal silhouette is within normal limits. Normal pulmonary vascularity. No evidence for lymphadenopathy. No visualized bony or soft tissue abnormality. Degenerative changes of the thoracic spine. Bilateral humeral head osteophytes. Impression: Normal chest radiograph Electronically signed by Deon Davenport 05-10-2025 5:16 PM
[2025-05-10 17:30] LABS: Hematocrit (blood only) 41.8 % (37.0-47.0); Hemoglobin 13.8 g/dl (12.0-16.0); Immature Granulocytes # (auto) 0.02 K/uL (0.01-0.20); Immature Granulocytes % (auto) 0.4 %; Mean Corpuscular Hemoglobin 31.2 pg (25.0-34.0); Mean Corpuscular Volume 94.6 fL (80.0-100.0); Platelet Count 162 K/uL (130-400); RDW Standard Deviation 43.5 fL (36.4-46.3); Red Blood Count 4.42 M/uL (4.20-5.40); White Blood Count 4.75 K/ul (4.8-10.8)
[2025-05-10] MEDS: OPTIRAY 320 100ml IV ONE (17:47)
[2025-05-10 17:52] LABS: Alanine Aminotransferase 31.0 U/L (7-52); Albumin Globulin Ratio 1.5 (0.9-2); Alkaline Phosphatase 76.0 U/L (34-104); Anion Gap 10.0 (3-11); Bilirubin,Total 0.4 mg/dl (0.2-1.0); Blood Urea Nitrogen 22.0 mg/dl (6-23); Calcium 8.6 mg/dl (8.6-10.3); Carbon Dioxide 23.0 mmol/L (21-32); Chloride 107.0 mmol/L (98-107); Creatinine Clr Calc Pharmacy 47.2 ml/min; Globulin 2.4 gm/dl (2.5-4.0); Glucose 160.0 mg/dl (70-99(Fasting)); Lipase 46.0 U/L (11-82); Potassium 4.2 mmol/L (3.5-5.1); Sodium 140.0 mmol/L (136-145); Total Protein 6.1 gm/dl (6.0-8.3)
--- NOTE | 2025-05-10 18:16 | CT Scan Report ---
CT cervical spine without IV contrast History: Trauma Comparison: None Technique: Using multidetector thin collimation helical acquisition technique, axial, coronal and sagittal CT images through the cervical spine were obtained without intravenous contrast. Dose reduction techniques were achieved by using automatic exposure control and/or adjustment of mA and/or kV according to patient size and/or use of iterative reconstruction technique. Findings: The cervical vertebrae are normally aligned. Straightened cervical lordosis. No acute fracture or subluxation. No prevertebral edema. Multilevel discogenic degenerative changes are overall severe. Severe bilateral degenerative facet changes seen especially at C3-4 where there is mature bony fusion, and approximately 3 mm, of degenerative related anterolisthesis. No abnormality of the paraspinous soft tissues. Impression: No acute fracture or traumatic subluxation. Electronically signed by Deon Davenport 05-10-2025 6:16 PM
--- NOTE | 2025-05-10 18:17 | CT Scan Report ---
EXAMINATION: CT of the chest, abdomen and pelvis performed after the administration of IV contrast TECHNIQUE: Helical CT images from the lung apices through the symphysis pubis were obtained with contrast. Coronal and sagittal reformatted images were generated at a workstation for further assessment. Dose reduction techniques were achieved by using automatic exposure control and/or adjustment of mA and/or kV according to patient size and/or use of iterative reconstruction technique. COMPARISON: None HISTORY: Trauma FINDINGS: Lines and tubes: None Mediastinum/Neck Base: No thyroid nodules. Central tracheobronchial tree is patent. Heart size is normal. No pericardial effusion. Normal thoracic vasculature. No thoracic lymphadenopathy. Lungs: No consolidation. No pleural effusion or pneumothorax. Liver: No suspicious liver lesions. Portal veins appear patent. Gallbladder: Tiny layering calcified gallstones. No evidence of acute cholecystitis. Spleen: Normal size. Pancreas: No suspicious pancreatic lesions. The pancreatic duct is not dilated. Adrenal glands: No adrenal nodules. Kidneys: No hydronephrosis or obstructing renal stones. Bladder / Pelvic organs: Unremarkable. Bowel: No bowel obstruction. No abnormal bowel wall thickening. The appendix is not seen. There is a large colonic stool burden suggesting constipation. Lymph nodes: No retroperitoneal, mesenteric, or pelvic lymphadenopathy. Peritoneum / Retroperitoneum: No free fluid or air within the abdomen. Vessels: No infrarenal aortic aneurysm. Bones and soft tissues: Degenerative changes of the spine. There is a fracture with mild depression of the upper body of the sternum. The ribs appear intact. Multilevel degenerative changes of the thoracic and lumbar spine without visualized acute bony abnormality. IMPRESSION: There is a fracture of the body of the sternum. No other acute findings in the chest, abdomen or pelvis Electronically signed by Deon Davenport 05-10-2025 6:16 PM
--- NOTE | 2025-05-10 18:17 | CT Scan Report ---
CT head without contrast History: Trauma Comparison: None Technique: Using multidetector thin collimation helical acquisition technique, axial, coronal and sagittal CT images from the skull base to the vertex were obtained without intravenous contrast. Dose reduction techniques were achieved by using automatic exposure control and/or adjustment of mA and/or kV according to patient size and/or use of iterative reconstruction technique. Findings: No intracranial hemorrhage, mass-effect, or midline shift. The ventricles are proportionate to the cerebral sulci. The bennett to white matter differentiation of the cerebral hemispheres is preserved. The basal cisterns are patent. There is moderate cerebral atrophy. Moderate, patchy low-attenuation changes in the white matter, most suggestive of sequelae of chronic small vessel ischemic disease. The visualized paranasal sinuses are clear. Mastoid air cells are clear. Impression: No acute intracranial pathology. Electronically signed by Deon Davenport 05-10-2025 6:16 PM
[2025-05-10 18:18] LABS: INR 0.9 (0.9-1.1); Partial Thromboplastin Time 26 Seconds (21-31); Prothrombin Time 10.2 Seconds (9.0-12.0)
[2025-05-10] MEDS: MoRPHine SULFATE 2 MG/ML CARP IV STA (18:23)
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
[2025-05-10] MEDS: MoRPHine SULFATE 4 MG/ML 1 ML CARP\\VIAL IV STA (20:45)
[2025-05-10] MEDS ORDERED: ALBUTEROL HFA 8 GM INHALER INH PRN (23:24)
[2025-05-10] MEDS ORDERED: LORazepam 0.5 MG TAB PO PRN (23:24)
[2025-05-11] MEDS: SIMVASTATIN 20 MG TAB PO SCH (00:14)
[2025-05-11] MEDS: GABAPENTIN 400 MG CAP PO SCH (00:14)
[2025-05-11] MEDS: ACETAMINOPHEN 325 MG TAB PO PRN (00:20)
[2025-05-11 05:58] LABS: Hematocrit (blood only) 41.2 % (37.0-47.0); Hemoglobin 13.9 g/dl (12.0-16.0); Immature Granulocytes # (auto) 0.01 K/uL (0.01-0.20); Immature Granulocytes % (auto) 0.2 %; Mean Corpuscular Hemoglobin 32.3 pg (25.0-34.0); Mean Corpuscular Volume 95.6 fL (80.0-100.0); Platelet Count 146 K/uL (130-400); RDW Standard Deviation 44.0 fL (36.4-46.3); Red Blood Count 4.31 M/uL (4.20-5.40); White Blood Count 4.58 K/ul (4.8-10.8)
[2025-05-11 06:17] LABS: Alanine Aminotransferase 26.0 U/L (7-52); Alkaline Phosphatase 73.0 U/L (34-104); Blood Urea Nitrogen 18.0 mg/dl (6-23); Calcium 8.2 mg/dl (8.6-10.3); Carbon Dioxide 25.0 mmol/L (21-32); Chloride 107.0 mmol/L (98-107); Cholesterol 131.0 mg/dl (0-200); Creatinine Clr Calc Pharmacy 57.0 ml/min; Glucose 120.0 mg/dl (70-99(Fasting)); HDL Cholesterol 41.0 mg/dl; Magnesium 1.9 mg/dl (1.7-2.4); Potassium 4.1 mmol/L (3.5-5.1)
[2025-05-11 06:33] LABS: Thyroid Stimulating Hormone 3.323 uIu/ml (0.300-4.500)
[2025-05-11 06:42] LABS: Anion Gap 7.0 (3-11); Bilirubin,Total 0.5 mg/dl (0.2-1.0); Sodium 139.0 mmol/L (136-145)
[2025-05-11 06:47] LABS: Albumin Globulin Ratio 1.5 (0.9-2); Globulin 2.3 gm/dl (2.5-4.0); Total Protein 5.7 gm/dl (6.0-8.3); Triglycerides 199.0 mg/dl (0-150)
[2025-05-11 07:05] LABS: Hemoglobin A1C 7.6 % (4.5-5.6)
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
[2025-05-11] MEDS: CALCIUM 600MG + VIT D 400 IU TAB PO SCH (09:05)
[2025-05-11] MEDS: DICLOFENAC SOD 1% GEL 100 GM TUBE EXT SCH (17:05)
[2025-05-11] MEDS: LIDOCAINE 5% 1 PATCH TD STA (17:09)
--- NOTE | 2025-05-11 17:47 | XCELERA ---
[id number] \\[id number]
[2025-05-11] MEDS: ENOXAPARIN INJ 40 MG/0.4 ML SYR SQ SCH (18:51)
[2025-05-11] MEDS: REMOVE LIDODERM PATCH SCH (20:19)
[2025-05-11 22:08] LABS: Appearance Urine Clear (Clear); Bacteria Urine Automated None Seen (None Seen); Cast Urine Automated 0-2 /lpf (0-2); Epithelial Cell Urine Auto 0-2 /hpf (0-2); Glucose Urine UA 3+ (Negative); RBC Urine Automated 0-2 /hpf (0-2)
[2025-05-11 23:39] VITALS: RESP 16
--- NOTE | 2025-05-12 06:20 | Electrocardiogram Report ---
Test Reason : Blood Pressure : */* mmHG Vent. Rate : 78 BPM Atrial Rate : 78 BPM P-R Int : 190 ms QRS Dur : 80 ms QT Int : 392 ms P-R-T Axes : 16 -15 32 degrees QTcB Int : 446 ms Sinus rhythm with marked sinus arrhythmia Cannot rule out Anterior infarct (cited on or before 17-Nov-2019) Abnormal ECG When compared with ECG of 17-Nov-2019 16:52, No significant change was found Confirmed by Solis Jones ([id number]) on 05/12/2025 6:20:07 AM Referred By: REFERRED SELF Confirmed By: Solis Jones
[2025-05-12 11:08] VITALS: BP 96/60; TEMP 97.9; O2SAT 93
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
[2025-05-12 13:37] VITALS: PULSE 81
== END 2025-05-12 17:30 | disposition home or self-care (01) | DRG 566 ==
LOC: ED 16:35 → 2S 21:04 → SUATTDRO 21:04 → 2S 22:15